=== PATIENT | female | born 1950 | race Caucasian/White ===

== ENCOUNTER 2024-01-24 09:24 | Outpatient (CLI) | payer MEDICARE, SELFPAY ==
--- NOTE | ~2024-01-24 | MR_ITS ---
EXAMINATION: MR hip LT wo con DATE: 01/24/2024 10:55 INDICATION: Left hip pain TECHNIQUE: Magnetic resonance imaging (MRI) of the left hip was performed without intravenous contra st. Sequences included full-field axial PD-weighted FS FSE and T1-weighted FSE, coronal of the pelvis with PD-weighted FS FSE, T2-weighted FSE and T1-weighted FSE, small field of view of the left hip w ith axial PD-weighted FS FSE, sagittal PD-weighted FS FSE, coronal PD-weighted FS FSE and coronal T2 weighted FSE. Additional radial T1-weighted FGR oriented orthogonal to the acetabular rim were obtai keira for evaluation of the labrum. COMPARISON: None FINDINGS: Bones/labrum/cartilage: Mild lumbar levocurvature with severe spondylosis.. There is severe osteoarthritis at the left hip wi th prominent subarticular edema-like and cystlike changes at both the acetabular and femoral sides of the superior joint space. There is suggestion of slight flattening of the articular cortex slightly posterior to the apex of the left femoral head suggesting secondary collapse of the articular cortex overlying the large subarticular cyst. No other fracture, osteonecrosis or pathologic marrow replacin g process. There is diffuse degenerative tearing of the left acetabular labrum. There is mild osteoar thritis at the right hip which is not diagnostically evaluated on the larger [id number] images. Fluid: Asymmetric likely reactive small left hip joint effusion and/or synovitis. Physiologic amount fluid a t the right hip joint. Mild increased fluid signal overlying the bilateral greater trochanters consis tent with mild trochanteric bursitis. There is also small amount of fluid overlying the right ischial tuberosity consistent with mild right ischial bursitis. Soft tissues: Normal and symmetric muscle bulk and signal in the pelvis and visualized proximal thighs. Mild tendin opathy and small enthesophytes at the ischial tuberosity origins of the bilateral proximal hamstring tendons. The bilateral iliopsoas tendons are normal. Mild tendinopathy without discrete tears at the bilateral gluteus medius and minimus tendons. Status post hysterectomy. Limited evaluation of viscera l organs of the pelvis is otherwise unremarkable. No pathologically enlarged pelvic/inguinal lymphad enopathy. IMPRESSION: 1. Severe left glenohumeral osteoarthritis with collapse of a portion of the articular surface slight ly posterior to the apex of the humeral head overlying a large degenerative subchondral cyst and with secondary likely reactive synovitis versus small joint effusion at the left hip. 2. Mild lumbar levocurvature with severe lower lumbar spondylosis. 3. Mild bilateral trochanteric bursitis. 4. Mild right ischial bursitis with chronic enthesopathic changes at the origins of the bilateral pro ximal hamstring tendons. Reviewed, dictated and finalized at location B. IMPRESSION: 1. Severe left glenohumeral osteoarthritis with collapse of a portion of the ar ticular surface slightly posterior to the apex of the humeral head overlying a large degenerative subchondral cyst and with secondary likely reactive synoviti s versus small joint effusion at the left hip. 2. Mild lumbar levocurvature with severe lower lumbar spondylosis. 3. Mild bilateral trochanteric bursitis. 4. Mild right ischial bursitis with chronic enthesopathic changes at the origin s of the bilateral proximal hamstring tendons.
== END 2024-01-24 09:25 | disposition home or self-care (01) ==
PROVIDERS: PCP Internal Medicine; Visit Provider Orthopaedic Surgery
DX: M70.62 Trochanteric bursitis, left hip (principal); M70.61 Trochanteric bursitis, right hip; M70.71 Other bursitis of hip, right hip; M19.012 Primary osteoarthritis, left shoulder; M43.8X6 Other specified deforming dorsopathies, lumbar region; M43.06 Spondylolysis, lumbar region
CPT/HCPCS: 73721

== ENCOUNTER 2024-03-25 16:16 | Outpatient (CLI) | payer MEDICARE, SELFPAY ==
--- NOTE | ~2024-03-25 | XR_ITS ---
HISTORY: M25.561 - Pain in right knee COMPARISON: None TECHNIQUE: 3 views of the right knee were performed FINDINGS: No acute or subacute fracture, erosion, lytic or sclerotic lesion. Medial more than lateral tibiofemoral joint space narrowing is identified. No suprapatellar joint effusion is identified. The infrapatellar joint space is clear. Significant degenerative disease is also identified within the patellofemoral joint space with near c omplete obliteration of the patellofemoral joint space. IMPRESSION: Severe degenerative disease, without acute fracture. Reviewed, dictated and finalized at location A. TIONAL TRAINER
== END 2024-03-25 16:17 | disposition home or self-care (01) ==
LOC: ANHIMG 16:17
PROVIDERS: PCP Internal Medicine; Visit Provider Orthopaedic Surgery
DX: M17.11 Unilateral primary osteoarthritis, right knee (principal)
CPT/HCPCS: 73562

== ENCOUNTER 2024-06-27 11:30 | Outpatient (CLI) | payer MEDICARE, SELFPAY ==
--- OUTSIDE RECORDS SUMMARY | 2024-06-27 11:41 | XMS_ITS | Continuity of Care Document ---
Author Organization [facility] Address [address] [place] [address] Phone Care Team Providers Care Produce Team Member Name Role Phone Kaleb Zavala DO Unavailable Unavailable Advance Directives Directive Yes / No Effective Date File Name No Information Encounters Encounter Description Practice Location Reason(s) For Visit Diagnoses Date Provider Providers Copied on Encounter [facility], [address], [place], [place], [id number], tel:[phone] [facility] No Information Lucas Muhammad. [address] [place], [address], . tel: [phone] Family History Family Member Type Diagnosis Age At Onset No Information Payers Payer name Insurance type Covered alliance party ID Authoriza tion(s) No Information Social [...]
--- OUTSIDE RECORDS SUMMARY | 2024-06-27 11:41 | XMS_ITS | Data Portability ---
Author Organization [place] [employer], Main Office Address [address] [place] [address] Assessment No assessment recorded. Plan of Treatment Reminders Order Date Submit Date Provider Last Modified By Organization Details Last Modified Time Details Appointments None recorded. Lab vitamin D, 25-hydrox y, total, serum 024 [facility], [address] , [place], [address], 4 15:42:37 lipid panel, serum [facility], [address], [place], [address], 4 15:42:30 CMP, serum or plasma [facility], [address], [place], [address], 4 15:42:32 TSH, serum or plasma [facility], [address], [place], [address], 4 15:42:36 T4, free, serum 024 [facility], [address], [place], [address], 4 15:42:35 CBC w/ auto diff [facility], [address] , [place], [address], 4 15:42:33 vitamin D, 25-hydrox y, total, serum 023 [facility], [address], [place], [address], 3 04:38:56 lipid panel, serum 023 [facility], [address], [place], [address], 3 04:38:50 CMP, serum or plasma [facility], [address], [place], [address], 3 04:38:52 TSH, serum or plasma [facility], [address], [place], [address], 3 04:38:55 T4, free, serum 023 [facility], [address], [place], [address], 3 04:38:54 CBC w/ auto diff [facility], [address], [place], [address], 3 04:38:53 Referral None recorded. Procedures None recorded. Surgeries None recorded. Imaging None recorded. Medication Orders None recorded. Patient TargetsNo targets recorded. Patient Instructions Encounter Date Encounter Id Patient Instructions Last Modified By Organization Details Last Modified Time 04/11/2023 [id number] dementia rating scale-2* [email or web address] Not available 04/11/2023 15:43:53 alcohol misuse* [email or web address] Not available 04/11/2023 15:43:54 depression screening* Not available 04/11/2023 15:43:54 multi-dimensiona l health assessment questionnaire* [email or web address] Not available 04/11/2023 15:43:54 Personalized a lt Plan and Screening Recommendations Advance Directives - Do you have one? Yes Advance Directives - Do we have your advance directive on file in your health record? No, please bring in a copy at your earliest convenience Primary Prevention/Interven tion (prevents or decreases the chance of common diseases from occurring) Smoking Risk: Non Smoker Alcohol Misuse Screening: Negative Weight: Physical activity: Need more exercise/physical activity Nutrition: Good Average Fall Risk (screened today): Low Vaccines Pneumococcal: Ordered Recommended today Recommended today, but you have declined No further needed Influenza: Your next one in the fall of this year Chronic Disease Risks Stroke: Low Risk Intermediate Risk I have no recommendations Act bill diagnosis, Continue current treatment plan Heart Attack: Low risk Intermediate Risk I have no recommendations Act bill diagnosis, Continue current treatment plan Clogging of the Arteries: Low risk Intermediate Risk I have no recommendations Act bill diagnosis, Continue current treatment plan Diabetes: Low Risk I have no recommendations Secondary Prevention/Interven tion (detects treatable diseases before they may cause symptoms, disability, or ) Breast Cancer Screening with mammogram: Your next mammogram: Ordered Recommended today Cervical/Uterine/Ov massiel Cancer Screening: No screening necessary Osteoporosis Screening: Your next DEXA in: Ordered Recomme nded today Date Screening Last Performed: Colon Cancer Screening: Colonoscopy Date Screening Last Performed: __2019___ Eye Disease Screening: Dementia Risk: Low I have no recommendations Depression Screening: Negative [email or web address] Not available 04/11/2023 15:40:22 Follow-up hyperlipidemia -history of colon polyps -sciatica all clinically stable. Will check blood work consisting of CBC, CMP, lipid, thyroid and vitamin-D level. Continue on current Rx does need a bone density scan as well as mammogram.FDA recommendations of a influenza, RSV, COVID, pneumococcal immunizations strongly advised. Portions of the record may have been created with voice recognition software. Occasional wrong-word or [id number] substitutions may have occurred due to the inherent limitations of voice recognition software. Read the chart carefully and recognize, using context, where substitutions have occurred. [email or web address] Not available 04/11/2023 15:34:15 10/10/2023 [id number] Left sacroiliac and hip pain. Will obtain radiographic studies of the hip in the lower back. Will set up with one of the orthopedist for further evaluation. Need to consider possibility of trochanteric bursitis as well as other bursitis type symptoms. May need an MRI of both the lower back as well as the hip area for further evaluation. Try to set up with doctors due for left hip pain LUIS A Patient has been quite a bit of pain and discomfort. X-ray of left hip and pelvis and lumbar spine Keep Appointment: Sun 09:30 AM [place] Portions of the record may have been created with voice recognition software. Occasional wrong-word or xhuld-w-[id number] substitutions may have occurred due to the inherent limitations of voice recognition software. Read the chart carefully and recognize, using context, where substitutions have occurred. [email or web address] Not available 10/10/2023 15:44:27 04/16/2024 [id number] dementia rating scale-2* [email or web address] Not available 04/16/2024 10:42:32 alcohol misuse* [email or web address] Not available 04/16/2024 10:42:32 depression screening* [email or web address] Not available 04/16/2024 10:42:32 Timed Up and Go test (TUG)* [email or web address] Not available 04/16/2024 10:42:32 multi-dimensiona l health assessment questionnaire* Not available 04/16/2024 10:42:32 Personalized a lth Plan and Screening Recommendations Advance Directives - Do you have one? Yes Advance Directives - Do we have your advance directive on file in your health record? No, please bring in a copy at your earliest convenience Primary Prevention/Interven tion (prevents or decreases the chance of common diseases from occurring) Smoking Risk: Non Smoker Alcohol Misuse Screening: Negative Weight: Appropriate Overwei ght continue your current weight loss efforts try to lose 5% of your body weight try to lose 10% of your body weight Physical activity: Need more exercise/physical activity Nutrition: Good Average Fall Risk (screened today): Low Vaccines Pneumococcal: Ordered Recommended today Recommended today, but you have declined No further needed Influenza: Chronic Disease Risks Stroke: Low Risk Intermediate Risk I have no recommendations Act bill diagnosis, Continue current treatment plan Heart Attack: Low risk Intermediate Risk I have no recommendations Act bill diagnosis, Continue current treatment plan Clogging of the Arteries: Low risk Intermediate Risk I have no recommendations Act bill diagnosis, Continue current treatment plan Diabetes: Low Risk I have no recommendations Secondary Prevention/Interven tion (detects treatable diseases before they may cause symptoms, disability, or ) Breast Cancer Screening with mammogram: Cervical/Uterine/Ov massiel Cancer Screening: No screening necessary Osteoporosis Screening: Date Screening Last Performed: Colon Cancer Screening: Colonoscopy In: Ordered Recomme nded Date Screening Last Performed: ____ Eye Disease Screening: Dementia Risk: Low I have no recommendations Depression Screening: Negative [email or web address] Not available 04/16/2024 10:33:16 [facility] risk assessment stable. Follow-up for hyperlipidemia. History of colon polyps, degenerative joint disease and obesity class one. He is clinically stable. Will give a Prevnar pneumonia shot. Does need blood work in the form of CBC, CMP, lipid, thyroid and vitamin-D level. Is in need of a colonoscopy as well as a mammogram. Will continue on current Rx follow-up in six months to a year Additional Orders - Directives - Recommendations 1. Mammogram 2. Follow-up colonoscopy for polyps Follow Up: 1 Year Approximate Date: 04/16/2025 Portions of the record may have been created with voice recognition software. Occasional wrong-word or heyza-x-[id number] substitutions may have occurred due to the inherent limitations of voice recognition software. Read the chart carefully and recognize, using context, where substitutions have occurred. Created: Frederic Reyes M.D. 04.16.2024 09:42 AM [email or web address] Not available 04/16/2024 10:42:12 Reason for Referral None Reported. Results Created Date Observation Date Name Description Value Unit Range Abnormal Flag Note LastModifiedBy Organization Detail LastModifiedTime 04/05/20 21 04/06/2021 VITAM IN D,25- OH,TO ASHLIE,I A vitamin D,25-oh,tota l,ia 38 NG/mL 30-100 normal Vitam in D Statu s 25-OH Vitam in D: Defic iency : <20 ng/mL Insuf ficie ncy: 20 - 29 ng/mL Optim al: > or = 30 ng/mL For 25-OH Vitam in D testi ng on patie nts on D2-nava pplem entat ion and patie nts for whom quant itati on of D2 and D3 fract ions is requi red, the [facility] e[facility](TM ) 25-OH VIT D, (D2,D 3), LC/MS /MS is recom shaneka d: order code 88936 (quynh ents >2yrs ). See Note 1 Note 1 For addit ional infor claribel ortiz refer to http: //mario Hernandezia gnost ics.c om/fa q/FAQ 199 (This link is being provi ded for infor man lua/ sylvester valverde purpo ses only. ) Not Available [address], [address], 04/06/2021 03:27:48 04/05/20 21 04/06/2021 CBC (INCL UDES DIFF/ PLT) white blood cell count 6.1 thous and/u L 3.8-10 .8 normal Not Available [address], [address], 04/06/2021 03:27:48 04/05/20 21 04/06/2021 CBC (INCL UDES DIFF/ PLT) red blood cell count 4.20 ariela on/uL 3.80-5 .10 normal Not Available [address], [address], 04/06/2021 03:27:48 04/05/20 21 04/06/2021 CBC (INCL UDES DIFF/ PLT) hemoglobin 13.9 g/dL 11.7-1 5.5 normal Not Available [address], [address], 04/06/2021 03:27:48 04/05/20 21 04/06/2021 CBC (INCL UDES DIFF/ PLT) hematocrit 42.0 % 35.0-4 5.0 normal Not Available [address], [address], 04/06/2021 03:27:48 04/05/20 21 04/06/2021 CBC (INCL UDES DIFF/ PLT) MCV 100.0 fL 80.0-1 00.0 normal Not Available [address], [address], 04/06/2021 03:27:48 04/05/20 21 04/06/2021 CBC (INCL UDES DIFF/ PLT) MCH 33.1 pg 27.0-3 3.0 high Not Available [address], [address], 04/06/2021 03:27:48 04/05/20 21 04/06/2021 CBC (INCL UDES DIFF/ PLT) MCHC 33.1 g/dL 32.0-3 6.0 normal Not Available [address], [address], 04/06/2021 03:27:48 04/05/20 21 04/06/2021 CBC (INCL UDES DIFF/ PLT) RDW 12.3 % 11.0-1 5.0 normal Not Available [address], [address], 04/06/2021 03:27:48 04/05/20 21 04/06/2021 CBC (INCL UDES DIFF/ PLT) platelet count 278 thous and/u L 140-40 0 normal Not Available [address], [address], 04/06/2021 03:27:48 04/05/20 21 04/06/2021 CBC (INCL UDES DIFF/ PLT) MPV 10.7 fL 7.5-12 .5 normal Not Available [address], [address], 04/06/2021 03:27:48 04/05/20 21 04/06/2021 CBC (INCL UDES DIFF/ PLT) absolute neutrophils 4057 cells /uL 1500-7 800 normal Not Available [address], [address], 04/06/2021 03:27:48 04/05/20 21 04/06/2021 CBC (INCL UDES DIFF/ PLT) absolute lymphocytes 1312 cells /uL 850-39 00 normal Not Available [address], [address], 04/06/2021 03:27:48 04/05/20 21 04/06/2021 CBC (INCL UDES DIFF/ PLT) absolute monocytes 378 cells /uL 200-95 0 normal Not Available [address] [place], [address], 04/06/2021 03:27:48 04/05/20 21 04/06/2021 CBC (INCL UDES DIFF/ PLT) absolute eosinophils 287 cells /uL 15-500 normal Not Available [address], [address], 04/06/2021 03:27:48 04/05/20 21 04/06/2021 CBC (INCL UDES DIFF/ PLT) absolute basophils 67 cells /uL 0-200 normal Not Available [address], [address], 04/06/2021 03:27:48 04/05/20 21 04/06/2021 CBC (INCL UDES DIFF/ PLT) neutrophils 66.5 % normal Not Available [address], [address], 04/06/2021 03:27:48 04/05/20 21 04/06/2021 CBC (INCL UDES DIFF/ PLT) lymphocytes 21.5 % normal Not Available [address], [address], 04/06/2021 03:27:48 04/05/20 21 04/06/2021 CBC (INCL UDES DIFF/ PLT) monocytes 6.2 % normal Not Available [address], [address], 04/06/2021 03:27:48 04/05/20 21 04/06/2021 CBC (INCL UDES DIFF/ PLT) eosinophils 4.7 % normal Not Available [address], [address], 04/06/2021 03:27:48 04/05/20 21 04/06/2021 CBC (INCL UDES DIFF/ PLT) basophils 1.1 % normal Not Available [address], [address], 04/06/2021 03:27:48 04/05/20 21 04/06/2021 COMPR EHENS BILL METAB OLIC PANEL , PLASM A glucose 96 mg/dL 65-99 normal Fasti ng refer ence inter martina Not Available [address], [address], 04/06/2021 03:27:47 04/05/20 21 04/06/2021 COMPR EHENS BILL METAB OLIC PANEL , PLASM A urea nitrogen (BUN) 11 mg/dL 7-25 normal Not Available [address], [address], 04/06/2021 03:27:47 04/05/20 21 04/06/2021 COMPR EHENS BILL METAB OLIC PANEL , PLASM A creatinine 0.87 mg/dL 0.50-0 .99 normal For patie nts >49 years of age, the refer ence limit for Creat inine is appro ximat anita 13% highe r for peopl e ident ified as Afric an-Am haroon n. Not Available [address], [address], 04/06/2021 03:27:47 04/05/20 21 04/06/2021 COMPR EHENS BILL METAB OLIC PANEL , PLASM A eGFR non-afr. hungarian 68 mL/mi n/1.7 3m2 > or = 60 normal Not Available [facility] [address], [place], [address], 04/06/2021 03:27:47 04/05/20 21 04/06/2021 COMPR EHENS BILL METAB OLIC PANEL , PLASM A eGFR 79 mL/mi n/1.7 3m2 > or = 60 normal Not Available [address], [address], 04/06/2021 03:27:47 04/05/20 21 04/06/2021 COMPR EHENS BILL METAB OLIC PANEL , PLASM A BUN/creatini ne ratio not applic able (calc ) 6-22 Not Available [address], [address], 04/06/2021 03:27:47 04/05/20 21 04/06/2021 COMPR EHENS BILL METAB OLIC PANEL , PLASM A sodium 141 mmol/ L 135-14 6 normal Not Available [address], [address], 04/06/2021 03:27:47 04/05/20 21 04/06/2021 COMPR EHENS BILL METAB OLIC PANEL , PLASM A potassium 3.9 mmol/ L 3.4-4. 8 normal Not Available [address], [address], 04/06/2021 03:27:47 04/05/20 21 04/06/2021 COMPR EHENS BILL METAB OLIC PANEL , PLASM A chloride 102 mmol/ L 98-110 normal Not Available [address], [address], 04/06/2021 03:27:47 04/05/20 21 04/06/2021 COMPR EHENS BILL METAB OLIC PANEL , PLASM A carbon dioxide 29 mmol/ L 20-32 normal Not Available [address], [address], 04/06/2021 03:27:47 04/05/20 21 04/06/2021 COMPR EHENS BILL METAB OLIC PANEL , PLASM A calcium 9.4 mg/dL 8.6-10 .4 normal Not Available [address], [address], 04/06/2021 03:27:47 04/05/20 21 04/06/2021 COMPR EHENS BILL METAB OLIC PANEL , PLASM A protein, total 6.6 g/dL 6.4-8. 4 normal Not Available [address], [address], 04/06/2021 03:27:47 04/05/20 21 04/06/2021 COMPR EHENS BILL METAB OLIC PANEL , PLASM A albumin 4.2 g/dL 3.6-5. 1 normal Not Available [address], [address], 04/06/2021 03:27:47 04/05/20 21 04/06/2021 COMPR EHENS BILL METAB OLIC PANEL , PLASM A globulin 2.4 g/dL_ (calc ) 2.2-4. 0 normal Not Available [address], [address], 04/06/2021 03:27:47 04/05/20 21 04/06/2021 COMPR EHENS BILL METAB OLIC PANEL , PLASM A albumin/glob ulin ratio 1.8 (calc ) 0.9-2. 3 normal Not Available [address], [address], 04/06/2021 03:27:47 04/05/20 21 04/06/2021 COMPR EHENS BILL METAB OLIC PANEL , PLASM A bilirubin, total 0.6 mg/dL 0.2-1. 2 normal Not Available [address], [address], 04/06/2021 03:27:47 04/05/20 21 04/06/2021 COMPR EHENS BILL METAB OLIC PANEL , PLASM A alkaline phosphatase 64 U/L 37-153 normal Not Available [address], [address], 04/06/2021 03:27:47 04/05/20 21 04/06/2021 COMPR EHENS BILL METAB OLIC PANEL , PLASM A AST 19 U/L 10-35 normal Not Available [address], [address], 04/06/2021 03:27:47 04/05/20 21 04/06/2021 COMPR EHENS BILL METAB OLIC PANEL , PLASM A ALT 16 U/L 6-29 normal Not Available [address], [address], 04/06/2021 03:27:47 04/05/20 21 04/06/2021 TSH+F REE T4 TSH 4.59 mIU/L 0.40-4 .50 high Not Available [address], [address], 04/06/2021 03:27:47 04/05/20 21 04/06/2021 TSH+F REE T4 T4, free 1.1 NG/dL 0.8-1. 8 normal Not Available [address], [address], 04/06/2021 03:27:47 04/05/20 21 04/06/2021 LIPID PANEL , STAND SHOSHANA cholesterol, total 186 mg/dL <200 normal Not Available [address], [address], 04/06/2021 03:27:45 04/05/20 21 04/06/2021 LIPID PANEL , STAND SHOSHANA HDL cholesterol 72 mg/dL > or = 50 normal Not Available [address] [place], [address], 04/06/2021 03:27:45 04/05/20 21 04/06/2021 LIPID PANEL , STAND SHOSHANA triglyceride s 92 mg/dL <150 normal Not Available [address] [address] [place], [address], 04/06/2021 03:27:45 04/05/20 21 04/06/2021 LIPID PANEL , STAND SHOSHANA LDL-choleste rol 95 mg/dL _(leodan c) normal Refer ence range : <100 Edu able range <100 mg/dL for prima ry preve ntion ; <70 mg/dL for patie nts with CHD or diabe tic patie nts with > or = 2 CHD risk facto rs. LDL-C is now calcu lated using the Shy n-Hop kins calcu ludy n, which is a valid ated novel lizyo d lorenzoi bridger kenyonte r accur acy than the Fried fawn equat ion in the estim ation of LDL-C . Shy mcconnell SS et al. SLAVA. 2013; 310(1 9): 2061- 2068 (http ://ed ucati on.Qu Bhavik [employer]. com/f aq/FA Q164) Not Available [address] [address] [address] , [place], [address], 04/06/2021 03:27:45 04/05/20 21 04/06/2021 LIPID PANEL , STAND SHOSHANA chol/HDLC ratio 2.6 (calc ) <5.0 normal Not Available [address] [address] [place], [address], 04/06/2021 03:27:45 04/05/2004/06/2021 LIPID PANEL , STAND SHOSHANA non HDL cholesterol 114 mg/dL _(leodan c) <130 normal For patie nts with diabe kushal plus 1 major ASCVD risk facto r, treat ing to a non-H DL-C goal of <100 mg/dL (LDL- C of <70 mg/dL ) is consi dered a thera peuti c optio n. Not Available [facility] [address] [address] [place], [address], 04/06/2021 03:27:45 04/08/20 22 04/09/2022 VITAM IN D,25- OH,TO ASHLIE,I A vitamin D,25-oh,tota l,ia 45 NG/mL 30-100 normal Vitam in D Statu s 25-OH Vitam in D: Defic iency : <20 ng/mL Insuf ficie ncy: 20 - 29 ng/mL Optim al: > or = 30 ng/mL For 25-OH Vitam in D testi ng on patie nts on D2-nava pplem entat ion and patie nts for whom quant itati on of D2 and D3 fract ions is requi red, the [facility] eD(TM ) 25-OH VIT D, (D2,D 3), LC/MS /MS is recom shaneka d: order code 90130 (quynh ents >2yrs ). See Note 1 Note 1 For addit ional infor claribel ortiz e refer to http: //[facility] Monta[facility] stDia gnost ics.c om/fa q/FAQ 199 (This link is being provi ded for infor man lua/ sylvester valverde purpo ses only. ) Not Available [facility] [address] [address] [place], [address], 04/09/2022 07:20:33 04/08/20 22 04/09/2022 TSH TSH 4.37 mIU/L 0.40-4 .50 normal Not Available [facility] [address] [address] [place], [address], 04/09/2022 07:20:32 04/08/20 22 04/09/2022 T4, FREE T4, free 1.1 NG/dL 0.8-1. 8 normal Not Available [facility] [address] [address] [place], [address], 04/09/2022 07:20:31 04/08/20 22 04/09/2022 CBC (INCL UDES DIFF/ PLT) white blood cell count 5.7 thous and/u L 3.8-10 .8 normal Not Available [address], [address], 04/09/2022 07:20:30 04/08/20 22 04/09/2022 CBC (INCL UDES DIFF/ PLT) red blood cell count 4.44 ariela on/uL 3.80-5 .10 normal Not Available [address], [address], 04/09/2022 07:20:30 04/08/20 22 04/09/2022 CBC (INCL UDES DIFF/ PLT) hemoglobin 14.2 g/dL 11.7-1 5.5 normal Not Available [address], [address], 04/09/2022 07:20:30 04/08/20 22 04/09/2022 CBC (INCL UDES DIFF/ PLT) hematocrit 44.1 % 35.0-4 5.0 normal Not Available [address], [address], 04/09/2022 07:20:30 04/08/20 22 04/09/2022 CBC (INCL UDES DIFF/ PLT) MCV 99.3 fL 80.0-1 00.0 normal Not Available [address], [address], 04/09/2022 07:20:30 04/08/20 22 04/09/2022 CBC (INCL UDES DIFF/ PLT) MCH 32.0 pg 27.0-3 3.0 normal Not Available [address], [address], 04/09/2022 07:20:30 04/08/20 22 04/09/2022 CBC (INCL UDES DIFF/ PLT) MCHC 32.2 g/dL 32.0-3 6.0 normal Not Available [address], [address], 04/09/2022 07:20:30 04/08/20 22 04/09/2022 CBC (INCL UDES DIFF/ PLT) RDW 11.9 % 11.0-1 5.0 normal Not Available [address], [address], 04/09/2022 07:20:30 04/08/20 22 04/09/2022 CBC (INCL UDES DIFF/ PLT) platelet count 256 thous and/u L 140-40 0 normal Not Available [address], [address], 04/09/2022 07:20:30 04/08/20 22 04/09/2022 CBC (INCL UDES DIFF/ PLT) MPV 10.4 fL 7.5-12 .5 normal Not Available [address], [address], 04/09/2022 07:20:30 04/08/20 22 04/09/2022 CBC (INCL UDES DIFF/ PLT) absolute neutrophils 3620 cells /uL 1500-7 800 normal Not Available [address], [address], 04/09/2022 07:20:30 04/08/20 22 04/09/2022 CBC (INCL UDES DIFF/ PLT) absolute lymphocytes 1402 cells /uL 850-39 00 normal Not Available [address], [address], 04/09/2022 07:20:30 04/08/20 22 04/09/2022 CBC (INCL UDES DIFF/ PLT) absolute monocytes 365 cells /uL 200-95 0 normal Not Available [address], [address], 04/09/2022 07:20:30 04/08/20 22 04/09/2022 CBC (INCL UDES DIFF/ PLT) absolute eosinophils 257 cells /uL 15-500 normal Not Available [address], [address], 04/09/2022 07:20:30 04/08/20 22 04/09/2022 CBC (INCL UDES DIFF/ PLT) absolute basophils 57 cells /uL 0-200 normal Not Available [address], [address], 04/09/2022 07:20:30 04/08/20 22 04/09/2022 CBC (INCL UDES DIFF/ PLT) neutrophils 63.5 % normal Not Available [address], [address], 04/09/2022 07:20:30 04/08/20 22 04/09/2022 CBC (INCL UDES DIFF/ PLT) lymphocytes 24.6 % normal Not Available [address], [address], 04/09/2022 07:20:30 04/08/20 22 04/09/2022 CBC (INCL UDES DIFF/ PLT) monocytes 6.4 % normal Not Available [address], [address], 04/09/2022 07:20:30 04/08/20 22 04/09/2022 CBC (INCL UDES DIFF/ PLT) eosinophils 4.5 % normal Not Available [address], [address], 04/09/2022 07:20:30 04/08/20 22 04/09/2022 CBC (INCL UDES DIFF/ PLT) basophils 1.0 % normal Not Available [address], [address], 04/09/2022 07:20:30 04/08/20 22 04/09/2022 COMPR EHENS BILL METAB OLIC PANEL , PLASM A glucose 102 mg/dL 65-99 high Fasti ng refer ence inter martina For someo ne witho ut known diabe kushal, a gluco se value betwe en 100 and 125 mg/dL is consi stent with predi abete s and shoul d be confi rmed with a follo w-up test. Not Available [address], [address], 04/09/2022 07:20:30 04/08/20 22 04/09/2022 COMPR EHENS BILL METAB OLIC PANEL , PLASM A urea nitrogen (BUN) 12 mg/dL 7-25 normal Not Available [address], [address], 04/09/2022 07:20:30 04/08/20 22 04/09/2022 COMPR EHENS BILL METAB OLIC PANEL , PLASM A creatinine 0.81 mg/dL 0.50-1 .05 normal Not Available [address], [address], 04/09/2022 07:20:30 04/08/20 22 04/09/2022 COMPR EHENS BILL METAB OLIC PANEL , PLASM A eGFR 79 mL/mi n/1.7 3m2 > or = 60 normal The eGFR is based on the CKD-E PI 2020 equat ion. To calcu late the new eGFR from a previ ous Creat inine or Cysta tin C resul t, go to https ://kt michaud.byron mayorga.o max/tasia arredondo s/ kdoqi /gfr% 5Fcal culat or Not Available [address], [address], 04/09/2022 07:20:30 04/08/20 22 04/09/2022 COMPR EHENS BILL METAB OLIC PANEL , PLASM A BUN/creatini ne ratio not applic able (calc ) 6-22 Not Available [address], [address], 04/09/2022 07:20:30 04/08/20 22 04/09/2022 COMPR EHENS BILL METAB OLIC PANEL , PLASM A sodium 139 mmol/ L 135-14 6 normal Not Available [address], [address], 04/09/2022 07:20:30 04/08/20 22 04/09/2022 COMPR EHENS BILL METAB OLIC PANEL , PLASM A potassium 4.4 mmol/ L 3.4-4. 8 normal Not Available [address], [address], 04/09/2022 07:20:30 04/08/20 22 04/09/2022 COMPR EHENS BILL METAB OLIC PANEL , PLASM A chloride 102 mmol/ L 98-110 normal Not Available [address], [address], 04/09/2022 07:20:30 04/08/20 22 04/09/2022 COMPR EHENS BILL METAB OLIC PANEL , PLASM A carbon dioxide 26 mmol/ L 20-32 normal Not Available [address], [address], 04/09/2022 07:20:30 04/08/20 22 04/09/2022 COMPR EHENS BILL METAB OLIC PANEL , PLASM A calcium 9.4 mg/dL 8.6-10 .4 normal Not Available [address], [address], 04/09/2022 07:20:30 04/08/20 22 04/09/2022 COMPR EHENS BILL METAB OLIC PANEL , PLASM A protein, total 6.9 g/dL 6.4-8. 4 normal Not Available [address], [address], 04/09/2022 07:20:30 04/08/20 22 04/09/2022 COMPR EHENS BILL METAB OLIC PANEL , PLASM A albumin 4.3 g/dL 3.6-5. 1 normal Not Available [address], [address], 04/09/2022 07:20:30 04/08/20 22 04/09/2022 COMPR EHENS BILL METAB OLIC PANEL , PLASM A globulin 2.6 g/dL_ (calc ) 2.2-4. 0 normal Not Available [address], [address], 04/09/2022 07:20:30 04/08/20 22 04/09/2022 COMPR EHENS BILL METAB OLIC PANEL , PLASM A albumin/glob ulin ratio 1.7 (calc ) 0.9-2. 3 normal Not Available [address], [address], 04/09/2022 07:20:30 04/08/20 22 04/09/2022 COMPR EHENS BILL METAB OLIC PANEL , PLASM A bilirubin, total 0.6 mg/dL 0.2-1. 2 normal Not Available [address], [address], 04/09/2022 07:20:30 04/08/20 22 04/09/2022 COMPR EHENS BILL METAB OLIC PANEL , PLASM A alkaline phosphatase 71 U/L 37-153 normal Not Available [address], [address], 04/09/2022 07:20:30 04/08/20 22 04/09/2022 COMPR EHENS BILL METAB OLIC PANEL , PLASM A AST 14 U/L 10-35 normal Not Available [address], [address], 04/09/2022 07:20:30 04/08/20 22 04/09/2022 COMPR EHENS BILL METAB OLIC PANEL , PLASM A ALT 11 U/L 6-29 normal Not Available [address], [address], 04/09/2022 07:20:30 04/08/20 22 04/09/2022 LIPID PANEL , STAND SHOSHANA cholesterol, total 188 mg/dL <200 normal Not Available [address], [address], 04/09/2022 07:20:29 04/08/20 22 04/09/2022 LIPID PANEL , STAND SHOSHANA HDL cholesterol 68 mg/dL > or = 50 normal Not Available [address], [address], 04/09/2022 07:20:29 04/08/20 22 04/09/2022 LIPID PANEL , STAND SHOSHANA triglyceride s 86 mg/dL <150 normal Not Available [address], [address], 04/09/2022 07:20:29 04/08/20 22 04/09/2022 LIPID PANEL , STAND SHOSHANA LDL-choleste rol 102 mg/dL _(leodan c) high Refer ence range : <100 Edu able range <100 mg/dL for prima ry preve ntion ; <70 mg/dL for patie nts with CHD or diabe tic patie nts with > or = 2 CHD risk facto rs. LDL-C is now calcu lated using the Shy n-[employer] kins calcu latkevin n, which is a valid ated novel metho d adali triplett acy than the Fried fawn equat ion in the estim ation of LDL-C . Shy mcconnell SS et al. SLAVA. 2013; 310(1 9): 2061- 2068 (http ://ed ucati on.Qu estDi paulyos tics. com/f aq/FA Q164) Not Available [address], [address], 04/09/2022 07:20:29 04/08/20 22 04/09/2022 LIPID PANEL , STAND SHOSHANA chol/HDLC ratio 2.8 (calc ) <5.0 normal Not Available [address] [address] [place], [address], 04/09/2022 07:20:29 04/08/20 22 04/09/2022 LIPID PANEL , STAND SHOSHANA non HDL cholesterol 120 mg/dL _(leodan c) <130 normal For patie nts with diabe kushal plus 1 major ASCVD risk facto r, treat ing to a non-H DL-C goal of <100 mg/dL (LDL- C of <70 mg/dL ) is sun corleyo n. Not Available [address] [address] [place], [address], 04/09/2022 07:20:29 04/20/20 23 04/21/2023 LIPID PANEL , STAND SHOSHANA cholesterol, total 147 mg/dL <200 normal Not Available [address] [place], [address], 04/21/2023 04:38:50 04/20/20 23 04/21/2023 LIPID PANEL , STAND SHOSHANA HDL cholesterol 51 mg/dL > or = 50 normal Not Available [address] [address] [place], [address], 04/21/2023 04:38:50 04/20/20 23 04/21/2023 LIPID PANEL , STAND SHOSHANA triglyceride s 109 mg/dL <150 normal Not Available [address] [address] [place], [address], 04/21/2023 04:38:50 04/20/20 23 04/21/2023 LIPID PANEL , STAND SHOSHANA LDL-choleste rol 77 mg/dL _(leodan c) normal Refer ence range : <100 Edu able range <100 mg/dL for prima ry preve ntion ; <70 mg/dL for patie nts with CHD or diabe tic patie nts with > or = 2 CHD risk facto rs. LDL-C is now calcu lated using the [facility]y n-[facility] kins layne boston n, which is a valid ated novel metho d provi bridger claudia r accur acy than the Fried fawn equat ion in the estim ation of LDL-C . Shy mcconnell SS et al. SLAVA. 2013; 310(1 9): 2061- 206 (http ://ed ucati on.Qu estDi Simple[employer]. com/f aq/FA Q164) Not Available [facility] [address] [address] [place], [address], 04/21/2023 04:38:50 04/20/20 23 04/21/2023 LIPID PANEL , STAND SHOSHANA chol/HDLC ratio 2.9 (calc ) <5.0 normal Not Available [facility] [address], [address], 04/21/2023 04:38:50 04/20/20 23 04/21/2023 LIPID PANEL , STAND SHOSHANA non HDL cholesterol 96 mg/dL _(leodan c) <130 normal For patie nts with diabe kushal plus 1 major ASCVD risk facto r, treat ing to a non-H DL-C goal of <100 mg/dL (LDL- C of <70 mg/dL ) is consi dered a thera peuti c optio n. Not Available [facility] [address] [place], [address], 04/21/2023 04:38:50 04/20/20 23 04/21/2023 COMPR EHENS BILL METAB OLIC PANEL , PLASM A glucose 105 mg/dL 65-99 high Fasti ng refer ence inter martina For someo ne witho ut known diabe kushal, a gluco se value betwe en 100 and 125 mg/dL is consi stent with predi abete s and shoul d be confi rmed with a follo w-up test. Not Available [facility] [place], [address], 04/21/2023 04:38:52 04/20/20 23 04/21/2023 COMPR EHENS BILL METAB OLIC PANEL , PLASM A urea nitrogen (BUN) 10 mg/dL 7-25 normal Not Available [address], [address], 04/21/2023 04:38:52 04/20/20 23 04/21/2023 COMPR EHENS BILL METAB OLIC PANEL , PLASM A creatinine 0.75 mg/dL 0.60-1 .00 normal Not Available [facility] [email or web address] Diagnostics [address], [address], 04/21/2023 04:38:52 04/20/20 23 04/21/2023 COMPR EHENS BILL METAB OLIC PANEL , PLASM A eGFR 86 mL/mi n/1.7 3m2 > or = 60 normal Not Available [address], [address], 04/21/2023 04:38:52 04/20/2004/21/2023 COMPR EHENS BILL METAB OLIC PANEL , PLASM A BUN/creatini ne ratio SEE NOTE: (calc ) 6-22 Not Repor rudy: BUN and Creat inine are withi n refer ence range . Not Available [address], [address], 04/21/2023 04:38:52 04/20/20 23 04/21/2023 COMPR EHENS BILL METAB OLIC PANEL , PLASM A sodium 141 mmol/ L 135-14 6 normal Not Available [address], [address], 04/21/2023 04:38:52 04/20/20 23 04/21/2023 COMPR EHENS BILL METAB OLIC PANEL , PLASM A potassium 3.6 mmol/ L 3.4-4. 8 normal Not Available [facility] [address] [place], [address], 04/21/2023 04:38:52 04/20/20 23 04/21/2023 COMPR EHENS BILL METAB OLIC PANEL , PLASM A chloride 104 mmol/ L 98-110 normal Not Available [address], [address], 04/21/2023 04:38:52 04/20/20 23 04/21/2023 COMPR EHENS BILL METAB OLIC PANEL , PLASM A carbon dioxide 27 mmol/ L 20-32 normal Not Available [address], [address], 04/21/2023 04:38:52 04/20/20 23 04/21/2023 COMPR EHENS BILL METAB OLIC PANEL , PLASM A calcium 9.2 mg/dL 8.6-10 .4 normal Not Available [address], [address], 04/21/2023 04:38:52 04/20/20 23 04/21/2023 COMPR EHENS BILL METAB OLIC PANEL , PLASM A protein, total 6.4 g/dL 6.4-8. 4 normal Not Available [address], [address], 04/21/2023 04:38:52 04/20/20 23 04/21/2023 COMPR EHENS BILL METAB OLIC PANEL , PLASM A albumin 4.0 g/dL 3.6-5. 1 normal Not Available [facility] [address], [address], 04/21/2023 04:38:52 04/20/20 23 04/21/2023 COMPR EHENS BILL METAB OLIC PANEL , PLASM A globulin 2.4 g/dL_ (calc ) 2.2-4. 0 normal Not Available [facility] [address], [address], 04/21/2023 04:38:52 04/20/20 23 04/21/2023 COMPR EHENS BILL METAB OLIC PANEL , PLASM A albumin/glob ulin ratio 1.7 (calc ) 0.9-2. 3 normal Not Available [address], [address], 04/21/2023 04:38:52 04/20/20 23 04/21/2023 COMPR EHENS BILL METAB OLIC PANEL , PLASM A bilirubin, total 0.5 mg/dL 0.2-1. 2 normal Not Available [address], [address], 04/21/2023 04:38:52 04/20/20 23 04/21/2023 COMPR EHENS BILL METAB OLIC PANEL , PLASM A alkaline phosphatase 84 U/L 37-153 normal Not Available [address], [address], 04/21/2023 04:38:52 04/20/20 23 04/21/2023 COMPR EHENS BILL METAB OLIC PANEL , PLASM A AST 14 U/L 10-35 normal Not Available [address], [address], 04/21/2023 04:38:52 04/20/20 23 04/21/2023 COMPR EHENS BILL METAB OLIC PANEL , PLASM A ALT 10 U/L 6-29 normal Not Available [address], [address], 04/21/2023 04:38:52 04/20/20 23 04/21/2023 CBC (INCL UDES DIFF/ PLT) white blood cell count 6.3 thous and/u L 3.8-10 .8 normal Not Available [address], [address], 04/21/2023 04:38:53 04/20/20 23 04/21/2023 CBC (INCL UDES DIFF/ PLT) red blood cell count 4.06 ariela on/uL 3.80-5 .10 normal Not Available [address], [address], 04/21/2023 04:38:53 04/20/20 23 04/21/2023 CBC (INCL UDES DIFF/ PLT) hemoglobin 13.6 g/dL 11.7-1 5.5 normal Not Available [address], [address], 04/21/2023 04:38:53 04/20/20 23 04/21/2023 CBC (INCL UDES DIFF/ PLT) hematocrit 40.4 % 35.0-4 5.0 normal Not Available [address], [address], 04/21/2023 04:38:53 04/20/20 23 04/21/2023 CBC (INCL UDES DIFF/ PLT) MCV 99.5 fL 80.0-1 00.0 normal Not Available [address], [address], 04/21/2023 04:38:53 04/20/20 23 04/21/2023 CBC (INCL UDES DIFF/ PLT) MCH 33.5 pg 27.0-3 3.0 high Not Available [address], [address], 04/21/2023 04:38:53 04/20/20 23 04/21/2023 CBC (INCL UDES DIFF/ PLT) MCHC 33.7 g/dL 32.0-3 6.0 normal Not Available [address], [address], 04/21/2023 04:38:53 04/20/20 23 04/21/2023 CBC (INCL UDES DIFF/ PLT) RDW 12.3 % 11.0-1 5.0 normal Not Available [address], [address], 04/21/2023 04:38:53 04/20/20 23 04/21/2023 CBC (INCL UDES DIFF/ PLT) platelet count 281 thous and/u L 140-40 0 normal Not Available [address], [address], 04/21/2023 04:38:53 04/20/20 23 04/21/2023 CBC (INCL UDES DIFF/ PLT) MPV 10.4 fL 7.5-12 .5 normal Not Available [address], [address], 04/21/2023 04:38:53 04/20/20 23 04/21/2023 CBC (INCL UDES DIFF/ PLT) absolute neutrophils 4397 cells /uL 1500-7 800 normal Not Available [address], [address], 04/21/2023 04:38:53 04/20/20 23 04/21/2023 CBC (INCL UDES DIFF/ PLT) absolute lymphocytes 1298 cells /uL 850-39 00 normal Not Available [address], [address], 04/21/2023 04:38:53 04/20/20 23 04/21/2023 CBC (INCL UDES DIFF/ PLT) absolute monocytes 353 cells /uL 200-95 0 normal Not Available [address], [address], 04/21/2023 04:38:53 04/20/2004/21/2023 CBC (INCL UDES DIFF/ PLT) absolute eosinophils 202 cells /uL 15-500 normal Not Available [address], [address], 04/21/2023 04:38:53 12/08/04/21/2023 CBC (INCL UDES DIFF/ PLT) absolute basophils 50 cells /uL 0-200 normal Not Available [address], [address], 04/21/2023 04:38:53 04/20/2004/21/2023 CBC (INCL UDES DIFF/ PLT) neutrophils 69.8 % normal Not Available [address], [address], 04/21/2023 04:38:53 04/20/2004/21/2023 CBC (INCL UDES DIFF/ PLT) lymphocytes 20.6 % normal Not Available [address], [address], 04/21/2023 04:38:53 04/20/20 23 04/21/2023 CBC (INCL UDES DIFF/ PLT) monocytes 5.6 % normal Not Available [address], [address], 04/21/2023 04:38:53 04/20/20 23 04/21/2023 CBC (INCL UDES DIFF/ PLT) eosinophils 3.2 % normal Not Available [address], [address], 04/21/2023 04:38:53 04/20/2004/21/2023 CBC (INCL UDES DIFF/ PLT) basophils 0.8 % normal Not Available [address], [address], 04/21/2023 04:38:53 04/20/20 23 04/21/2023 T4, FREE T4, free 1.2 NG/dL 0.8-1. 8 normal Not Available [address], [address], 04/21/2023 04:38:54 04/20/20 23 04/21/2023 TSH TSH 2.89 mIU/L 0.40-4 .50 normal Not Available [facility] [address] [address] [place], [address], 04/21/2023 04:38:55 04/20/20 23 04/21/2023 VITAM IN D,25- OH,TO ASHLIE,I A vitamin D,25-oh,tota l,ia 32 NG/mL 30-100 normal Vitam in D Statu s 25-OH Vitam in D: Defic iency : <20 ng/mL Insuf ficie ncy: 20 - 29 ng/mL Optim al: > or = 30 ng/mL For 25-OH Vitam in D testi ng on patie nts on D2-nava pplem entat ion and patie nts for whom quant itati on of D2 and D3 fract ions is requi red, the [facility] e[facility](TM ) 25-OH VIT D, (D2,D 3), LC/MS /MS is recom shaneka d: order code 98964 (quynh ents >2yrs ). See Note 1 Note 1 For addit ional infor claribel ortiz refer to http: //[facility] Hernandezia gnost ics.c om/fa q/FAQ 199 (This link is being provi ded for infor man lua/ sylvester valverde purpo ses only. ) Not Available [facility] [address] [address] [place], [address], 04/21/2023 04:38:56 04/17/20 24 04/18/2024 LIPID PANEL , STAND SHOSHANA cholesterol, total 169 mg/dL <200 normal Not Available [facility] [address] [address] [place], [address], 04/18/2024 15:42:30 04/17/20 24 04/18/2024 LIPID PANEL , STAND SHOSHANA HDL cholesterol 59 mg/dL > or = 50 normal Not Available [facility] [address] [address] [place], [address], 04/18/2024 15:42:30 04/17/20 24 04/18/2024 LIPID PANEL , STAND SHOSHANA triglyceride s 90 mg/dL <150 normal Not Available [facility] [address] [place], [address], 04/18/2024 15:42:30 04/17/20 24 04/18/2024 LIPID PANEL , STAND SHOSHANA LDL-choleste rol 92 mg/dL _(leodan c) normal Refer ence range : <100 Edu able range <100 mg/dL for prima ry preve ntion ; <70 mg/dL for patie nts with CHD or diabe tic patie nts with > or = 2 CHD risk facto rs. LDL-C is now calcu lated using the Shy n-[employer] kins calcu ludy n, which is a valid ated novel metho d provi ding claudia r accur acy than the Fried fawn equat ion in the estim ation of LDL-C . Shy mcconnell SS et al. SLAVA. 2013; 310(1 9): 2061- 2068 (http ://ed ucati on.Qu katarinaBlue Medora. com/f aq/FA Q164) Not Available [facility] [address] [place], [address], 04/18/2024 15:42:30 04/17/20 24 04/18/2024 LIPID PANEL , STAND SHOSHANA chol/HDLC ratio 2.9 (calc ) <5.0 normal Not Available [facility] [address] [place], [address], 04/18/2024 15:42:30 04/17/20 24 04/18/2024 LIPID PANEL , STAND SHOSHANA non HDL cholesterol 110 mg/dL _(leodan c) <130 normal For patie nts with diabe kushal plus 1 major ASCVD risk facto r, treat ing to a non-H DL-C goal of <100 mg/dL (LDL- C of <70 mg/dL ) is consi dered a thera peuti c optio n. Not Available [facility] [address] [place], [address], 04/18/2024 15:42:30 04/17/20 24 04/18/2024 COMPR EHENS BILL METAB OLIC PANEL , PLASM A glucose 100 mg/dL 65-99 high Fasti ng refer ence inter martina For someo ne witho ut known diabe kushal, a gluco se value betwe en 100 and 125 mg/dL is consi stent with predi abete s and shoul d be confi rmed with a follo w-up test. Not Available [facility] [address], [address], 04/18/2024 15:42:32 04/17/20 24 04/18/2024 COMPR EHENS BILL METAB OLIC PANEL , PLASM A urea nitrogen (BUN) 10 mg/dL 7-25 normal Not Available [address], [address], 04/18/2024 15:42:32 04/17/20 24 04/18/2024 COMPR EHENS BILL METAB OLIC PANEL , PLASM A creatinine 0.71 mg/dL 0.60-1 .00 normal Not Available [address], [address], 04/18/2024 15:42:32 04/17/20 24 04/18/2024 COMPR EHENS BILL METAB OLIC PANEL , PLASM A eGFR 91 mL/mi n/1.7 3m2 > or = 60 normal Not Available [facility] [address], [address], 04/18/2024 15:42:32 04/17/20 24 04/18/2024 COMPR EHENS BILL METAB OLIC PANEL , PLASM A BUN/creatini ne ratio SEE NOTE: (calc ) 6-22 Not Repor rudy: BUN and Creat inine are withi n refer ence range . Not Available [facility] [address], [address], 04/18/2024 15:42:32 04/17/20 24 04/18/2024 COMPR EHENS BILL METAB OLIC PANEL , PLASM A sodium 133 mmol/ L 135-14 6 low Not Available [address], [address], 04/18/2024 15:42:32 04/17/20 24 04/18/2024 COMPR EHENS BILL METAB OLIC PANEL , PLASM A potassium 4.0 mmol/ L 3.4-4. 8 normal Not Available [address], [address], 04/18/2024 15:42:32 04/17/20 24 04/18/2024 COMPR EHENS BILL METAB OLIC PANEL , PLASM A chloride 99 mmol/ L 98-110 normal Not Available [address], [address], 04/18/2024 15:42:32 04/17/20 24 04/18/2024 COMPR EHENS BILL METAB OLIC PANEL , PLASM A carbon dioxide 27 mmol/ L 20-32 normal Not Available [address], [address], 04/18/2024 15:42:32 04/17/20 24 04/18/2024 COMPR EHENS BILL METAB OLIC PANEL , PLASM A calcium 9.5 mg/dL 8.6-10 .4 normal Not Available [address], [address], 04/18/2024 15:42:32 04/17/20 24 04/18/2024 COMPR EHENS BILL METAB OLIC PANEL , PLASM A protein, total 6.8 g/dL 6.4-8. 4 normal Not Available [address], [address], 04/18/2024 15:42:32 04/17/20 24 04/18/2024 COMPR EHENS BILL METAB OLIC PANEL , PLASM A albumin 4.1 g/dL 3.6-5. 1 normal Not Available [address], [address], 04/18/2024 15:42:32 04/17/20 24 04/18/2024 COMPR EHENS BILL METAB OLIC PANEL , PLASM A globulin 2.7 g/dL_ (calc ) 2.2-4. 0 normal Not Available [address], [address], 04/18/2024 15:42:32 04/17/20 24 04/18/2024 COMPR EHENS BILL METAB OLIC PANEL , PLASM A albumin/glob ulin ratio 1.5 (calc ) 0.9-2. 3 normal Not Available [address], [address], 04/18/2024 15:42:32 04/17/20 24 04/18/2024 COMPR EHENS BILL METAB OLIC PANEL , PLASM A bilirubin, total 0.5 mg/dL 0.2-1. 2 normal Not Available [address], [address], 04/18/2024 15:42:32 04/17/20 24 04/18/2024 COMPR EHENS BILL METAB OLIC PANEL , PLASM A alkaline phosphatase 83 U/L 37-153 normal Not Available [address], [address], 04/18/2024 15:42:32 04/17/20 24 04/18/2024 COMPR EHENS BILL METAB OLIC PANEL , PLASM A AST 16 U/L 10-35 normal Not Available [address], [address], 04/18/2024 15:42:32 04/17/20 24 04/18/2024 COMPR EHENS BILL METAB OLIC PANEL , PLASM A ALT 19 U/L 6-29 normal Not Available [address] [place], [address], 04/18/2024 15:42:32 04/17/20 24 04/18/2024 CBC (INCL UDES DIFF/ PLT) white blood cell count 8.2 thous and/u L 3.8-10 .8 normal Not Available [address], [address], 04/18/2024 15:42:33 04/17/20 24 04/18/2024 CBC (INCL UDES DIFF/ PLT) red blood cell count 3.92 ariela on/uL 3.80-5 .10 normal Not Available [facility] [address], [address], 04/18/2024 15:42:33 04/17/20 24 04/18/2024 CBC (INCL UDES DIFF/ PLT) hemoglobin 13.1 g/dL 11.7-1 5.5 normal Not Available [address], [address], 04/18/2024 15:42:33 04/17/20 24 04/18/2024 CBC (INCL UDES DIFF/ PLT) hematocrit 40.5 % 35.0-4 5.0 normal Not Available [address], [address], 04/18/2024 15:42:33 04/17/20 24 04/18/2024 CBC (INCL UDES DIFF/ PLT) MCV 103.3 fL 80.0-1 00.0 high Not Available [facility] [address], [address], 04/18/2024 15:42:33 04/17/20 24 04/18/2024 CBC (INCL UDES DIFF/ PLT) MCH 33.4 pg 27.0-3 3.0 high Not Available [facility] [address], [address], 04/18/2024 15:42:33 04/17/20 24 04/18/2024 CBC (INCL UDES DIFF/ PLT) MCHC 32.3 g/dL 32.0-3 6.0 normal For adult s, a sligh t decre ase in the calcu lated MCHC value (in the range of 30 to 32 g/dL) is most likel y not clini ji signi fican t; reji er, it shoul d be inter prete d with cauti on in [facility] n with other red cell lanny eters and the patie nt's clini leodan condi tion. Not Available [facility] [address], [address], 04/18/2024 15:42:33 04/17/20 24 04/18/2024 CBC (INCL UDES DIFF/ PLT) RDW 12.2 % 11.0-1 5.0 normal Not Available [facility] [address], [address], 04/18/2024 15:42:33 04/17/20 24 04/18/2024 CBC (INCL UDES DIFF/ PLT) platelet count 292 thous and/u L 140-40 0 normal Not Available [address], [address], 04/18/2024 15:42:33 04/17/20 24 04/18/2024 CBC (INCL UDES DIFF/ PLT) MPV 10.0 fL 7.5-12 .5 normal Not Available [facility] [email or web address] [address], [address], 04/18/2024 15:42:33 04/17/20 24 04/18/2024 CBC (INCL UDES DIFF/ PLT) absolute neutrophils 6535 cells /uL 1500-7 800 normal Not Available [address], [address], 04/18/2024 15:42:33 04/17/20 24 04/18/2024 CBC (INCL UDES DIFF/ PLT) absolute lymphocytes 943 cells /uL 850-39 00 normal Not Available [address], [address], 04/18/2024 15:42:33 04/17/20 24 04/18/2024 CBC (INCL UDES DIFF/ PLT) absolute monocytes 443 cells /uL 200-95 0 normal Not Available [address], [address], 04/18/2024 15:42:33 04/17/20 24 04/18/2024 CBC (INCL UDES DIFF/ PLT) absolute eosinophils 221 cells /uL 15-500 normal Not Available [address], [address], 04/18/2024 15:42:33 04/17/20 24 04/18/2024 CBC (INCL UDES DIFF/ PLT) absolute basophils 57 cells /uL 0-200 normal Not Available [address], [address], 04/18/2024 15:42:33 04/17/20 24 04/18/2024 CBC (INCL UDES DIFF/ PLT) neutrophils 79.7 % normal Not Available [address], [address], 04/18/2024 15:42:33 04/17/20 24 04/18/2024 CBC (INCL UDES DIFF/ PLT) lymphocytes 11.5 % normal Not Available [address], [address], 04/18/2024 15:42:33 04/17/20 24 04/18/2024 CBC (INCL UDES DIFF/ PLT) monocytes 5.4 % normal Not Available [address], [address], 04/18/2024 15:42:33 04/17/20 24 04/18/2024 CBC (INCL UDES DIFF/ PLT) eosinophils 2.7 % normal Not Available [address], [address], 04/18/2024 15:42:33 04/17/20 24 04/18/2024 CBC (INCL UDES DIFF/ PLT) basophils 0.7 % normal Not Available [address], [address], 04/18/2024 15:42:33 04/17/20 24 04/18/2024 T4, FREE T4, free 1.4 NG/dL 0.8-1. 8 normal Not Available [address], [address], 04/18/2024 15:42:34 04/17/20 24 04/18/2024 TSH TSH 3.22 mIU/L 0.40-4 .50 normal Not Available [address], [address], 04/18/2024 15:42:36 04/17/20 24 04/18/2024 VITAM IN D,25- OH,TO ASHLIE,I A vitamin D,25-oh,tota l,ia 27 NG/mL 30-100 low Vitam in D Statu s 25-OH Vitam in D: Defic iency : <20 ng/mL Insuf ficie ncy: 20 - 29 ng/mL Optim al: > or = 30 ng/mL For 25-OH Vitam in D testi ng on patie nts on D2-nvaa pplem entat ion and patie nts for whom quant itati on of D2 and D3 fract ions is requi red, the [facility] e[facility](TM ) 25-OH VIT D, (D2,D 3), LC/MS /MS is recom shaneka d: order code 18435 (quynh ents >2yrs ). See Note 1 Note 1 For addit ional infor claribel ortiz e refer to http: //mario Calvillo gnost ics.c om/fa q/FAQ 199 (This link is being provi ded for infor man nal/ educa adonis l purpo ses only. ) Not Available [facility][1] - [place] [address] [place], [address], 04/18/2024 15:42:37 04/22/20 21 04/22/2021 scree ramiro breas t jarrett, bilat [facility] [address] [place] [address] [facility] Name: CAINJOSE GalindoCORNELIA Access ion #: [id number] Sex: F : 1950 9 Locati on: RAD Attend ing Physic kaye: MOHINDER REYES CE Orderi ng Physic kaye: MOHINDER REYES CE Exam Date: 2020 7:29 AM Exam Name: MG SCRN BREAST JARRETT BILAT Admitt ing Diagno sis(es ): MAMMOG SUELLEN REPORT - FINAL EXAM: MG SCRN BREAST JARRETT BILAT HISTOR Y: screen ing mammog augusto 70-yea r-old female with no curren t breast compla ints. COMPAR CHIDI: 2019, 2018 TECHNI QUE: Bilate ral CC and MLO views of the breast s were perfor med. Digita l Mammog suellen images were obtain ed. CAD (compu ter assist ed detect ion) was utiliz ed. 3D Digita l breast tomosy nthesi s was perfor med and used in the interp retati on of images . FINDIN GS: There are scatte red areas of fibrog landul ar densit y. No masses , asymme tries, suspic ious calcif icatio ns, or leonard ectura l Page 1 of 2 [facility] t Name: CAINJOSE Galindo CORNELIA K Access ion #: [id number] Sex: F : 1950 7 Exam Date: 2020 7:29 AM Exam Name: MG SCRN BREAST JARRETT BILAT Admitt ing Diagno sis(es ): distor tion are seen. IMPRES PATTI: BIRADS 1: Assess ment comple te. Negati ve. Recomm end annual screen ing mammog suellen. Accord ing to the [employer], yearly mammog alfred are recomm ended starti ng at age 40 and contin uing as long as the woman is in good health . Clinic al Breast Exam should be part of the period ic health exam-a bout every 3 years for women in their 20s and 30s and every year for women 40 and over. Breast self-e xam is an option for women in their 20s. Any breast change noted on the breast self-e xam she would be report ed prompt ly to the liam [facility] er. A negati ve mammog suellen report should not discou rage follow -up or biopsy of a clinic ally signif icant findin g and/or abnorm ality. Dense breast tissue may obscur e small neopla sms. This liam brown has been entere d into a mammog suellen remind er system with a target date for her next mammog augusto. Create d and electr onical ly signed by: Balaji mai MD Signed Date: 2020 8:29 AM (CT) Dictat ed by: Balaji mai MD DD: 2020 8:28 AM (CT) DT: 2020 8:28 AM (CT) Page 2 of 2 [id number] [facility] (Imaging) [address] [place], [address], 07/12/2022 14:54:09 05/12/20 22 05/12/2022 scree ramiro hebert t jarrett, bilat [facility] [address] [place] [address] Liam brown Name: CORNELIA KUMAR Access ion #: [id number] Sex: F : 1950 9 Locati on: RAD Attend ing Physic kaye: MOHINDER REYES CE Orderi ng Physic kaye: MOHINDER REYES Exam Date: 2021 7:02 AM Exam Name: MG ALLEN BREAST JARRETT BILAT Admitt ing Diagno sis(es ): MAMMOG SUELLEN REPORT - FINAL EXAM: MG ALLEN BREAST JARRETT BILAT HISTOR Y: screen ing COMPAR CHIDI: 2019, 2020 TECHNI QUE: Bilate ral CC and MLO views of the breast s were perfor med. Digita l Mammog suellen images were obtain ed. CAD (compu ter assist ed detect ion) was utiliz ed. 3D Digita l breast tomosy nthesi s was perfor med and used in the interp retati on of images . FINDIN GS: There are scatte red areas of fibrog landul ar densit y. No masses , asymme tries, suspic ious calcif icatio ns, or leonard ectura l Page 1 of 2 [facility] Liam brown Name: CORNELIA KUMAR Access ion #: [id number] Sex: F : 1950 9 Exam Date: 2021 7:02 AM Exam Name: MG ALLEN BREAST JARRETT BILAT Admitt ing Diagno sis(es ): distor tion are seen. IMPRES PATTI: BIRADS 1: Assess ment comple te. Negati ve. Recomm end annual screen ing mammog suellen. Accord ing to the [employer], yearly mammog alfred are recomm ended starti ng at age 40 and contin uing as long as the woman is in good health . Clinic al Breast Exam should be part of the period ic health exam-a bout every 3 years for women in their 20s and 30s and every year for women 40 and over. Breast self-e xam is an option for women in their 20s. Any breast change noted on the breast self-e xam she would be report ed prompt ly to the [facility]. A negati ve mammog suellen report should not discou rage follow -up or biopsy of a clinic ally signif icant findin g and/or abnorm ality. Dense breast tissue may obscur e small neopla sms. This liam brown has been entere d into a mammog suellen remind er system with a target date for her next mammog augusto. Create d and electr onical ly signed by: Robert casas MD Signed Date: 2021 2:34 PM (CT) Dictat ed by: Robert casas MD DD: 2021 2:34 PM (CT) DT: 2021 2:34 PM (CT) Page 2 of 2 [id number] [facility] (Imaging) [address] [place], [address], 07/12/2022 14:54:09 05/02/20 23 05/02/2023 scree ramiro breas t jarrett, bilat [facility] [address] [place] [address] Patien t Name: CORNELIA KUMAR Access ion #: [id number] Sex: F : 1950 5 Locati on: RAD Attend ing Physic kaye: MOHINDER REYES CE Orderi ng Physic kaye: MOHINDER REYES CE Exam Date: 2022 8:39 AM Exam Name: MG ALLEN BREAST JARRETT BILAT Admitt ing Diagno sis(es ): MAMMOG SUELLEN REPORT - FINAL EXAM: SCRN BREAST JARRETT BILAT HISTOR Y: SCREEN ING MAMMOG AUGUSTO 72-yea r-old female with no curren t breast compla ints. COMPAR CHIDI: 2021, 2021, 2018 TECHNI QUE: Bilate ral CC and MLO views of the breast s were perfor med. Digita l Mammog suellen images were obtain ed. CAD (compu ter assist ed detect ion) was utiliz ed. 3D Digita l breast tomosy nthesi s was perfor med and used in the interp retati on of images . FINDIN GS: The breast s are almost entire ly fatty. No new masses , develo ping asymme tries, suspic ious calcif icatio ns, or Page 1 of 2 [facility] Patien t Name: CORNELIA KUMAR Access ion #: [id number] Sex: F : 1950 5 Exam Date: 2022 8:39 AM Exam Name: MG ALLEN BREAST JARRETT BILAT Admitt ing Diagno sis(es ): leonard ectura l distor tion are seen. IMPRES PATTI: BIRADS 1: Assess ment comple te. Negati ve. Recomm end annual screen ing mammog suellen. Accord ing to the [employer], yearly mammog alfred are recomm ended starti ng at age 40 and contin uing as long as the woman is in good health . Clinic al Breast Exam should be part of the period health exam-a bout every 3 years for women in their 20s and 30s and every year for women 40 and over. Breast self-e xam is an option for women in their 20s. Any breast change noted on the breast self-e xam she would be report ed prompt ly to the [facility] care [facility] er. A negati ve mammog suellen report should not discou rage follow -up or biopsy of a clinic ally signif icant findin g and/or abnorm ality. Dense breast tissue may obscur e small neopla sms. This liam brown has been entere d into a mammog suellen remind er system with a target date for her next mammog augusto. Create d and electr onical ly signed by: Balaji mai MD Signed Date: 2022 10:25 AM (CT) Dictat ed by: Balaji mai MD DD: 2022 10:25 AM (CT) DT: 2022 10:25 AM (CT) Page 2 of [id number] [place] [address] (Imaging) [address] [place], [address], 05/02/2023 12:03:40 05/02/20 23 05/02/2023 DEXA, axial skele ton [facility] [address] [place] [address] [phone] Liam brown Name: CORNELIA KUMAR Access ion #: [id number] Sex: F : 1950 5 Dictat ed By: Ramirez Escalante Attend ing Physic kaye: MOHINDER REYES Orderi Physic kaye: MOHINDER REYES CE Exam Date: 2022 08:39 AM Exam Name: XR DEXA-H IPS PELVIS SPINE Admitt ing Diagno sis(es ): INDICA TION: Postme nopaus al osteop orosis DEXA SCAN: BONE DENSIT Y REPORT : AP SPINE (L1-L4 ) : T Score: 1.9 LEFT HIP TOTAL : T Score: -0.7 RT HIP TOTAL : T Score: -0.9 TOTAL BILAT HIP AVG: T Score: -0.8 10 YEAR FRACTU RE RISK* NA IMPRES PATTI: Normal bone minera lizati on ------ ------ ------ ------ ------ ------ ------ ------ ----- *FRAX versio n 3.08. Fractu re probab ility calcul ated for an untrea rudy patien t. Fractu re probab ility may be lower if the patien t has receiv ed treatm ent. T-scor e: compar chidi by hamilton uriostegui deviat ion (SD) to a young adult popula tion, louis d for sex and ethnic ity (used for postme nopaus al women and men >50 years) and classi fied by WHO criter ia. ?-1.0: normal <-1.0 to >-2.5: osteop enia ?-2.5: osteop orosis ?-2.5 plus fragil ity fractu re: severe osteop orosis Page 1 [facility] [address] [facility] [place] [address] [phone] Liam brown Name: CORNELIA KUMAR Access ion #: [id number] Sex: F : 1950 5 Dictat ed By: Ramirez Escalante Attend ing Physic kaye: RENÉE SU ng Physic kaye: MOHINDER REYES CE Exam Date: 2022 08:39 AM Exam Name: XR DEXA-H IPS PELVIS SPINE Admitt ing Diagno sis(es ): Z-scor e: compar ed by SD to an age, sex, and ethnic ity popula tion (used for premen opausa l women, men <50 years, and childr en instea d of T-scor e WHO criter ia 4) <-2.0: below expect ed range/ low bone densit y for age, and a cause should be sought Electr onical ly Signed by: Ramirez Escalante at 2022 15:06: 52 PM Page [address] (Imaging) [address] [place], [address], 05/02/2023 16:58:52 01/24/20 24 01/24/2024 MRI, hip, w/o contr ast No observ ation record ed. [address] [facility] [address], [place], [address], 01/24/2024 21:19:12 03/25/20 24 03/25/2024 XR, knee No observ ation record ed. [address], [place], [address], 03/26/2024 08:39:01 05/12/20 24 05/12/2024 scree ramiro breas t jarrett, bilat [facility] [address] [place] [address] Liam t Name: TOYA Medley CORNELIA White Access ion #: [id number] Sex: F : 1950 6 Locati on: RAD Attend ing Physic kaye: MOHINDER REYES Orderi ng Physic kaye: MOHINDER REYES Exam Date: 2023 6:32 AM Exam Name: MG ALLEN BREAST JARRETT BILAT Admitt ing Diagno sis(es ): MAMMOG SUELLEN REPORT - FINAL EXAM: MG ALLEN BREAST JARRETT BILAT HISTOR Y: screen ing for mammo 73-yea r-old female with no curren t breast compla ints. COMPAR CHIDI: Mammog suellen dated 2022 and 2021. TECHNI QUE: Bilate ral CC and MLO views of the breast s were perfor med. Digita l Mammog suellen images were obtain ed. CAD (compu ter assist ed detect ion) was utiliz ed. 3D Digita l breast tomosy nthesi s was perfor med and used in the interp retati on of images . FINDIN GS: The breast s are almost entire ly fatty. No masses , asymme tries, suspic ious calcif icatio ns, or leonard ectura l Page 1 of 2 [facility] Name: CORNELIA KUMAR Access ion #: [id number] Sex: F : 1950 6 Exam Date: 2023 6:32 AM Exam Name: MG ALLEN BREAST JARRETT BILAT Admitt ing Diagno sis(es ): distor tion are seen. IMPRES PATTI: BIRADS 1: Assess ment comple te. Negati ve. Recomm end annual screen ing mammog suellen. Accord ing to the [employer], yearly mammog alfred are recomm ended starti ng at age 40 and contin uing as long as the woman is in good health . Clinic al Breast Exam should be part of the period health exam-a bout every 3 years for women in their 20s and 30s and every year for women 40 and over. Breast self-e xam is an option for women in their 20s. Any breast change noted on the breast self-e xam she would be report ed prompt ly to the [facility] er. A negati ve mammog suellen report should not discou rage follow -up or biopsy of a clinic ally signif icant findin g and/or abnorm ality. Dense breast tissue may obscur e small neopla sms. This patien t has been entere d into a mammog suellen remind er system with a target date for her next mammog augusto. Create d and electr onical ly signed by: Balaji mai MD Signed Date: 2023 8:54 AM (CT) Dictat ed by: Balaji mai MD DD: 2023 8:54 AM (CT) DT: 2023 8:54 AM (CT) Page 2 of [address] (Imaging) [address] [place], [address], 05/12/2024 13:44:09 Result Notes None recorded. Problems Name Problem SNOMED Code Status Onset Date Resolution Date Notes Provider Name and Address Organization Details Recorded Time [place] 827797317 Active Not Available [facility] 3 14:49:38 Pure hyperchole sterolemia 954229955 Active Not Available [facility] 3 14:49:39 Epigastric hernia 686304795 Active Not Available [facility] 3 14:49:39 Postartifi cial menopausal syndrome 07322061 Active Not Available [facility] 3 14:49:39 Vitamin D deficiency 88633511 Active 2021 Not Available [facility] 3 14:49:39 History of polyp of colon 044679027 Active 2019 Not Available [facility] 3 14:49:39 Cervical radiculopa thy 17037081 Active Not Available [facility] 3 14:49:39 Herniation of nucleus pulposus 36378525 Active Not Available [facility] 3 14:49:39 Sciatica 09140946 Active 2022 Subha De La Cruz CMA null, [place] [employer] [facility] 3 16:03:58 Senile osteoporos is 82826995 Active 2022 Keyonna Carty null, [employer] [facility] 3 15:46:19 Low back pain 713024978 Active 2023 Subha De La Cruz CMA null, [facility] 4 11:08:32 Pain of left hip joint 3531458329818 00 Active 2023 Frederic Reyes MD [address], [place], [address] , [facility] 4 15:41:03 Hip pain 64485525 Active 2023 Subha De La Cruz CMA null, [facility] 4 12:52:50 Osteoarthr itis 885452277 Active 2023 Frederic Reyes MD [address], [address], [place], [address] , [facility] [employer] [facility] 4 10:35:07 Obese class I [id number] 07 Active 2023 Frederic Reyes MD [address], [address], [place], [address] , [facility] [employer] [facility] [employer] [facility] 4 10:41:02 Acute sinusitis 61393254 Active 2023 Frederic Reyes MD [address], [place], [address] , [facility] [employer] [facility] [employer] [facility] 4 12:43:33 Problem Notes None recorded. Procedures Surgical History Date Name Laterality Status Provider Name and Address Organization Details Recorded Time 04/16/20 24 Medicare Wellness CPT Code, subsequent completed Rebeca Mayo RN [facility] [employer] [facility] 04/16/2024 10:26:26 04/11/20 23 Medicare Wellness CPT Code, subsequent completed Rebeca Mayo RN [facility] [employer] [facility] 04/11/2023 15:34:03 04/05/20 20 Most Recent Bone Density completed Not Available [facility] 07/12/2022 14:45:39 11/27/19 19 Date of Last Colonoscopy completed Not Available [facility] 07/12/2022 14:45:39 Imaging Results Imaging Date Name Status LastModified by Organiz [facility] Details LastModified Time 05/12/2022 screening breast jarrett, bilat completed [id number] [facility] (Imaging) [address] [place], [address], 07/12/2022 14:54:09 04/22/2021 screening breast jarrett, bilat completed [id number] [facility] (Imaging) [address] [place], [address], 07/12/2022 14:54:09 05/02/2023 screening breast jarrett, bilat completed [address] (Imaging) [address] [place], [address], 05/02/2023 12:03:40 05/02/2023 DEXA, axial skeleton completed [address] (Imaging) [address] [place], [address], 05/02/2023 16:58:52 01/24/2024 MRI, hip, w/o contrast completed [address] [facility] [address], [place], [address], 01/24/2024 21:19:12 03/25/2024 XR, knee completed [address], [place], [address], 03/26/2024 08:39:01 05/12/2024 screening breast jarrett, bilat completed [address] (Imaging) [address] [place], [address], 05/12/2024 13:44:09 Procedure Notes None recorded. Medical Equipment None Reported. Allergies Allergen ID Allergen Name Allergen Category Reaction Reaction Severity Criticality Documentation Date Start Date Code Code System Note Provider Name and Address Organization Details Recorded Time 64513 morphine medicatio n vomiting Not available Not available 07/12/2022 7052 RxNorm Not Available [facility] 14:54:01 Medications Name Sig Start Date Stop Date Status Note LastModified by Organization Details LastModified Time amoxicillin 500 mg capsule Take 1 capsule 3 times a day by oral route for 10 days. 05/09 completed Not Available Not Available Not Available atorvastati n 40 mg tablet TAKE 1 TABLET DAILY 2024 active Not Available Not Available Not Avai lable prednisone 10 mg tablet TAKE 1 TABLET BY MOUTH TWICE DAILY 04/16 completed Not Available Not Available Not Available Medrol (Rashaad) 4 mg tablets in a dose pack TAKE BY ORAL ROUTE DIRECTED PER PACKAGE INSTRUCTI ONS 04/16 completed Not Available Not Available Not Available ondansetron 8 mg disintegrat ing tablet DISSOLVE 1 TABLET ON THE TONGUE EVERY 8 HOURS NEEDED FOR NAUSEA 04/16 completed Not Available Not Available Not Available oxycodone-a cetaminophe n 5 mg-325 mg tablet TAKE 1 TABLET BY MOUTH EVERY 4 TO 6 HOURS NEEDED FOR PAIN 04/16 completed Not Available Not Available Not Available Tessalon Perles 100 mg capsule Take 1 capsule 3 times a day by oral route. 09/12 completed Not Available Not Available Not Available diclofenac sodium 75 mg tablet,ivan yed release TAKE 1 TABLET BY MOUTH TWICE A DAY active Not Available Not Available No t Available mupirocin 2 % topical ointment 04/16 completed Not Available Not Available Not Available amoxicillin 875 mg-potassiu m clavulanate 125 mg tablet Take 1 tablet every 12 hours by oral route. active Not Available Not Available No t Available Os-Leodan 500 + D3 twice a day 03/29 completed Not Available Not Available Not Available GaviLyte-G 236 gram-22.74 gram-6.74 gram-5.86 gram oral solution active Not Available Not Available Not Available Os-Leodan 500 + D3 500 mg-15 mcg (600 unit) tablet Take 1 tablet twice a day by oral route. 2021 active Not Available Not Available Not Avai lable tramadol 100 mg tablet TAKE 1 TABLET BY MOUTH EVERY 4 TO 6 HOURS NEEDED FOR PAIN 04/16 completed Not Available Not Available Not Available Vitals Date Recorded Body mass index (BMI) Body mass index (BMI) Body height Body height Oxygen saturation Oxygen saturation in Arterial blood by Pulse oximetry Oxygen saturation Oxygen saturation in Arterial blood by Pulse oximetry Pain severity - 0-10 verbal numeric rating [Score] - Reported Heart rate Heart rate Body temperature Body temperature Body weight Body weight Systolic blood pressure Diastolic blood pressure Systolic blood pressure Diastolic blood pressure Provider Name and Address Organization Details Last Updated DateTime 3 35.2 kg/m2 35.6 kg/m2 171.45 cm 171.45 cm 99 % 99 % 98 % 98 % 0 78 /min 75 /min 97.4 [degF] 97 [degF] 870788. 06 g 174185. 84 g 116 mm[Hg] 72 mm[Hg] 122 mm[Hg] 78 mm[Hg] Not Available [employer] 3 14:47:00 Date Recorded Heart rate Provider Name an d Address Organization Details Last Updated DateTime 04/11/2023 100 /min Frederic Reyes MD [address] [place] [address], [address], [email or web address] 04/11/2023 15:30:26 Date Recorded Body temperature Oxygen saturation Oxygen saturation in Arterial blood by Pulse oximetry Systolic blood pressure Diastolic blood pressure Provider Name and Address Organization Details Last Updated DateTime 3 97 [degF] 98 % 98 % 122 mm[Hg] 60 mm[Hg] Bridget Rodriges [facility] 3 15:14:15 Date Recorded Pain severity - 0-10 verbal numeric rating [Score] - Reported Provider Name and Address Organization Details Last Updated DateTime 04/11/2023 0 Rebeca Mayo RN [facility] 04/11/2023 15:34:18 Date Recorded Body height Body mass index (BMI) Body weight Heart rate Body temperature Oxygen saturation Oxygen saturation in Arterial blood by Pulse oximetry Systolic blood pressure Diastolic blood pressure Provider Name and Address Organization Details Last Updated DateTime 4 171.45 cm 34.7 kg/m2 074513. 28 g 85 /min 97.6 [degF] 97 % 97 % 128 mm[Hg] 72 mm[Hg] RAFAELA Sandoval [employer] 4 15:24:37 Date Recorded Body height Body weight Heart rate Body temperature Oxygen saturation Oxygen saturation in Arterial blood by Pulse oximetry Systolic blood pressure Diastolic blood pressure Provider Name and Address Organization Details Last Updated DateTime 4 171.45 cm 40332.8 1 g 57 /min 97 [degF] 98 % 98 % 126 mm[Hg] 78 mm[Hg] RAFAELA Sandoval [place] - [facility] 10:23:25 Social History Question Answer Notes LastModified by Organizat ion Details LastModified Time Tobacco Smoking Status Never Smoker Not Available [facility] 07/12/2022 14:45:15 Do You Have An Advance Directive? Yes MIGRATION.796897 6380 Information not available 07/12/2022 What Is Your Level Of Alcohol Consumption? None MIGRATION.535857 3188 Information not available 07/12/2022 Are You Blind Or Do You Have Difficulty Seeing? No MIGRATION.697643 4696 Information not available 07/12/2022 Are You Deaf Or Do You Have Serious Difficulty Hearing? No MIGRATION.754012 4422 Information not available 07/12/2022 What Type Of Diet Are You Following? REGULAR MIGRATION.196676 3249 Information not available 07/12/2022 Have There Been Any Changes To Your Family Or Social Situation? No MIGRATION.672115 2751 Information not available 07/12/2022 What Is The Fluoride Status Of Your Home? Unknown [email or web address] Information not available 04/11/2023 Are There Any Guns Present In Your Home? Yes MIGRATION.933896 9532 Information not available 07/12/2022 Do You Use Insect Repellent Routinely? No MIGRATION.248237 3231 Information not available 07/12/2022 Where Do You Live? [place]House MIGRATION.065514 3575 Information not available 07/12/2022 Guns Present In The Home? Yes [email or web address] Information not available 04/11/2023 Are You Able To Care For Yourself? Yes Information not available 04/11/2023 Are You Blind Or Do Yo Have Difficulty Seeing? No [email or web address] Information not available 04/11/2023 Are You Deaf Or Do You Have Serious Difficulty Hearing? No [email or web address] Information not available 04/11/2023 Live Alone Of With Others? With Others [email or web address] Information not available 04/11/2023 Do You Have A Medical Power Of Echocardiologist? Yes MIGRATION.731497 2774 Information not available 07/12/2022 What Was The Date Of Your Most Recent Tobacco Screening? 04/16/2024 [email or web address] Information not available 04/16/2024 Do You Have Any Pets? Yes MIGRATION.581254 9089 Information not available 07/12/2022 What Is Your Relationship Status? MIGRATION.835924 5746 Information not available 07/12/2022 Do You Use Your Seat Belt Or Car Seat Routinely? Yes [email or web address] Information not available 04/11/2023 Do You Have Smoke And Carbon Monoxide Detectors In Your Home? Yes MIGRATION.585649 7080 Information not available 07/12/2022 Are You Passively Exposed To Smoke? No MIGRATION.454343 5485 Information not available 07/12/2022 Are There Any Smokers In Your House? No MIGRATION.054353 1959 Information not available 07/12/2022 Do You Use Sunscreen Routinely? Yes MIGRATION.008685 4683 Information not available 07/12/2022 Have You Recently Traveled Abroad? No MIGRATION.434212 2875 Information not available 07/12/2022 Do You Have Any Dietary Restrictions? No MIGRATION.372666 7748 Information not available 07/12/2022 Sex: Unknown Functional Status Question Answer Note LastModified by Organizat ion Details LastModified Time Do you have difficulty walking or climbing stairs? No MIGRATION.4778965 026 Information not available 07/12/2022 Do you have transportation difficulties? No MIGRATION.1665856 026 Information not available 07/12/2022 Are you able to walk? YESASSIST [email or web address] Information not available 04/16/2024 Do you have difficulty doing errands alone? No MIGRATION.2861138 026 Information not available 07/12/2022 Are you able to care for yourself? Yes MIGRATION.7275658 026 Information not available 07/12/2022 Do you have difficulty dressing or bathing? No MIGRATION.7557533 026 Information not available 07/12/2022 What is your exercise level? Occasional [email or web address] Information not available 04/16/2024 Mental Status Question Answer Note LastModified by Organizat ion Details LastModified Time Do you have difficulty concentrating, remembering or making decisions? No MIGRATION.[id number] 6 Information not available 07/12/2022 Family History Nothing Reported Notes:Mother 38 yea rs old Father 68 years old Mother Hx: Leukemia Father Hx: Cerebral Aneurysm Medical History Condition Response NERVE DISEASE N BLINDNESS N RHEUMATIC FEVER N KIDNEY STONES N BLADDER PROBLEMS N MRSA N OTHER # 1 N POLIO N LUNG DISEASE/DISORDER N HISTORY OF DRUG ABUSE N RADIATION / CHEMOTHERAPY N COPD N Other # 2 N BLOOD DISEASES N EAR OR HEARING PROBLEMS N MUMPS N SHINGLES N BOWEL PROBLEMS N DEPRESSION (INCLUDING POST ) N STROKE/TIA N ULCERS N BENIGN PROSTATIC HYPERPLASIA N MEASLES N HYPOTENSION N MYOCARDIAL INFARCTION N OBESITY N GERD/NAUSEA N ANEURYSM N URINARY/BLADDER/KIDNEY PROBLEMS N CORONARY ARTERY DISEASE (CAD) N ADDICTION CONCERNS N ENDOMETRIOSIS N Impotence N USE OF BLOOD THINNERS N SKIN PROBLEMS N GASTROINTESTINAL DISORDER N PERIPHERAL VASCULAR DISEASE N MUSCLE,JOINT OR BONE PROBLEMS N GASTROINTESTINAL BLEEDING N BLOOD CLOTS N ASTHMA N CATARACTS N ERECTILE DYSFUNCTION N VARICOSITIES N GI PROBLEMS N Low Testosterone N INFERTILITY N AIDS/HIV N CHEMOTHERAPY / RADIATION N LIVER DISEASE N MALE HYPOGONADISM N HYPERTENSION N Deficiency N TOURETTE'S N ANXIETY DISORDER N BLOOD TRANSFUSION N ANEMIA/BLOOD DISORDER N CHRONIC EAR INFECTIONS N BRONCHITIS N TUBERCULOSIS N GLAUCOMA N FOOT PROBLEM N DIVERTICULITIS N CHICKENPOX N SLEEP APNEA N INFECTIOUS DISEASE N HEART ARRHYTHMIA N PROSTATE N INSOMNIA N HIGH CHOLESTEROL / HYPERLIPIDEMIA Y HYPERTHYROIDISM N EYE PROBLEMS N EDEMA N CHRONIC PAIN SYNDROME N HYPOTHYROIDISM N CAROTID BLOCKAGE N CONSTIPATION N BACK / NECK PROBLEMS Y HAVE YOU BEEN HOSPITALIZED OR SEEN IN [facility] IN THE PAST YEAR ? N ATHEROSCLEROSIS N BREAST PROBLEMS N DIALYSIS N ECZEMA N OSTEOPOROSIS N ARTHRITIS N NO SIGNIFICANT PAST MEDICAL HISTORY N APPENDICITIS N DIABETES, TYPE N BAD TEETH N ENT N HEARTBURN / REFLUX N AUTISM SPECTRUM DISORDER (ASD) N HEPATITIS / LIVER DISEASE N GOUT N SLEEP DISORDER N ALZHEIMER'S DISEASE N Brain Problems N HERPES N DEMENTIA N HEADACHES/MIGRAINES N SEIZURES/EPILEPSY N VASCULAR DISEASE N PACEMAKER N Blood Disorder N DIZZINESS N HEART DISEASE/HEART PROBLEMS N KIDNEY DISEASE N MULTIPLE SCLEROSIS N CARDIAC ARRHYTHMIA N CANCER: SPECIFY N ATRIAL FIBRILLATION N Gall Stones N PULMONARY EMBOLISM N AUTOIMMUNE DISEASE N Gynecological History Statement/Question Response Date of Last Mammogram 04/05/2020 Date of Last Colonoscopy 11/26/2018 Most Recent Bone Density 04/05/2020 Obstetrics History GPAL:G 0 P 0 0 0 0 Immunizations Vaccine Type Date Status Note Provider [place] mai and Address Organization Details Recorded Time influenza, unspecified formulation 3 completed JESUS Be [place] [facility] 04/11/2023 15:14:58 Influenza, split virus, trivalent, preservative 3 completed Not Available [facility] 07/12/2022 14:53:52 SARS-COV-2 (COVID-19) vaccine, UNSPECIFIED 2 completed Not Available [facility] 07/12/2022 14:53:52 Influenza, high-dose, trivalent, PF 2 completed Not Available [facility] 07/12/2022 14:53:52 COVID-19, mRNA, LNP-S, PF, 30 mcg/0.3 mL dose 1 completed Not Available [facility] 07/12/2022 14:53:52 Influenza, split virus, quadrivalent, preservative 1 completed Not Available [facility] 07/12/2022 14:53:52 COVID-19, mRNA, LNP-S, PF, 30 mcg/0.3 mL dose 1 completed Not Available [facility] 07/12/2022 14:53:53 COVID-19, mRNA, LNP-S, PF, 30 mcg/0.3 mL dose 1 completed Not Available [facility] 07/12/2022 14:53:53 Influenza, split virus, trivalent, preservative 4 completed Not Available [facility] 07/12/2022 14:53:53 pneumococcal polysaccharide PPV23 9 completed Not Available [facility] 07/12/2022 14:53:53 Influenza, high-dose, trivalent, PF 8 completed Not Available [facility] 07/12/2022 14:53:53 Pneumococcal conjugate PCV 13 8 completed Not Available [facility] 07/12/2022 14:53:53 Influenza, split virus, quadrivalent, PF 6 completed Not Available [facility] 07/12/2022 14:53:53 Influenza, split virus, quadrivalent, preservative 7 completed Not Available [facility] 07/12/2022 14:53:53 Influenza, split virus, quadrivalent, preservative 5 completed Not Available [facility] 07/12/2022 14:53:53 Pneumococcal conjugate PCV20, polysaccharide [id number] conjugate, adjuvant, PF 4 completed RAFAELA Sandoval, [place] [facility] 04/16/2024 12:26:08 Past Encounters Encounter ID Performer Location Encounter Start Date Encounter Closed Date Diagnosis/Indication Diagnosis SNOMED-CT Code Diagnosis ICD10 Code Diagnosis Note [id number] [facility] [address] [address] 03/30/2021 00:00:00 03/30/2021 11:22:50 [id number] [facility] [address] [id number] 03/29/2022 00:00:00 03/29/2022 10:46:57 [id number] Frederic Reyes MD [facility] Internal Med [facility] [address] [id number] 04/11/2023 14:42:52 04/11/2023 15:48:03 Pure hypercholesterolemia 467284606 E78.00 History of polyp of colon 924887935 Z86.010 Sciatica 23120991 M54.30 Adult [facility] th examination 643769200 Z00.00 Screening for disorder 827807660 Z13.9 Vitamin D deficiency 347 80008 E55.9 [id number] Frederic Reyes MD [facility] Internal Med [facility] [address] [address] 10/10/2023 15:03:15 10/10/2023 15:47:11 Pain of left hip joint [id number] 77686 M25.786 [id number] Frederic Reyes MD [facility] [place] [facility] [address] [address] 04/16/2024 10:17:00 04/16/2024 10:53:56 Adult health examination 427952798 Z00.00 Screening for disorder 656423111 Z13.9 Pure hypercholesterolemia 445191777 E78.00 History of polyp of colon 031350376 Z86.0100 Osteoarthritis 817765311 M19.90 Obese class I 7711588989 19823 E66.811 Vitamin D deficiency 347 82788 E55.9 Health Concerns Section Related Observation LastModified by Organization Detai ls LastModified Time None Recorded Concern Status LastModified by Organization Details LastModified Time None Recorded Advance Directives Directive Y: Payers Encounter Date Sequence Insurance Name Policy Number Policy Santiago Covered Member ID Santiago Member ID Guarantor Name 04/11/2023 1 [employer] (MEDICARE REPLACEMENT PPO) [id number] 1 Cornelia Estes [id number] Cornelia Estes 10/10/2023 1 [employer] (MEDICARE REPLACEMENT PPO) [id number] 1 Cornelia Estes [id number] Cornelia Estes 04/16/2024 1 [employer] (MEDICARE REPLACEMENT PPO) [id number] Cornelia Estes [id number] Cornelia Estes Notes Date Note Type Note Provider Name and Address Organization Details Recorded Time 3 text/html Patient Name: Cornelia EstesDate Of Service: Sunday ( 04.11.2023 ): 1950 Age: 72 Vital Signs:Blood Pressure: Sitting Rt. Arm 122/60Pulse: Sitting 100 /min and RegularRespiratory Rate: 12 Chief Complaint: Addressed in HPI Problems or conditions discussed in the HPI were the only ones reviewed during the encounter.Only social and family history addressed in the HPI were reviewed during this encounter. A significant, separate E/M service was performed to evaluate the current and new problems. Attendant(s): NoneConstitutional and Systemic Symptoms:none Medication Reconciliation: from medication list. History of Present Illness Reviewed the findings of the preventative health visit. Addressed all areas with the patient, patient's family or caregivers. Preventative examinations and testing immunizations - vaccinations, colonic neoplasm screening and mammograms all reviewed and ordered where patient was amenable to the recommendations. Cognitive function was normal. Depression addressed and where necessary medications were adjusted or instituted. End of life and living will briefly discussed with patient and where these can be filled out and legally executed. Other blood and imaging studies were ordered if considered necessary. Other recommendations may be found in the encounter note. #1. Type II Hypercholesterolaemia: Currently taking medication and tolerating well. No interval complaints of any muscle pain or arthralgia. No significant liver changes with medications. Last lipid panel: fair control. Therapy reviewed regarding treatment of cholesterol management and include diet and Lipitor. #2. Colon polyps: Hx of colon polyps. No interval complaints of any bleeding or change in bowel habits. Last colonoscopy was three years ago. #3. History of bilateral sciatica in the past. Current has not been bothered by any significant lower back pain or radiation of pain down into the legs. No numbness, tingling, weakness or any other neuro sensory or motor deficits. Is restricted as far as activity because recent foot surgery.:Medication List Reviewed and Reconciled 04/11/2023Os-leodan D 500 MG One Tid For CalciumLipitor 40 MG (TABLET - ORAL) One Daily For CholesterolADRs List Reviewed 04/11/2023Morphine Nausea And VomtingVaccination and Nvgqzmpbaxtz8607-97 Mdnzvvolw8042-78 Covid Booster Qtowvc6034-88 Covid Gmyntx4208-41 Ryswzmyiu4569-73 Prevnar 13 GcSurgical HistoryRight Hammer Toe, Left Bunion Surgery, Lap Cholecystectomy, Rt. 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 This represents approximately a 2.6% change in weight. Weight change attributable to lifestyle changes. Vital Signs:Blood Pressure: Sitting Rt. Arm 128/72Pulse: Sitting 85 /min and RegularRespiratory Rate: 12Height 67.5 in or 1.7 mWeight 225 lb or 102.1 kgBMI 34.7Temperature: 97.6 F or 36.4 CPulse Oximetry: 97 % at rest on no oxygen Chief Complaint: Addressed in HPI Problems or conditions discussed in the HPI were the only ones reviewed during the encounter.Only social and family history addressed in the HPI were reviewed during this encounter. Attendant(s): NoneConstitutional and Systemic Symptoms:none Medication Reconciliation: from medication list. History of Present Illness #1. Proximally 3-3 and half month history of pain and discomfort in the lower back with some radiation down into the flexor area of the left hip. Denied any associated injury. Does work out on a regular basis. The pain is aggravated by standing and by ambulation. As long as the patient remains still the pain is bearable. Denies any numbness, tingling, weakness or any other neurosensory or motor deficits. There is no saddle anesthesia. No incontinence of urine or stool.: Active Medication ListOs-leodan D 500 MG One Tid For CalciumLipitor 40 MG (TABLET - ORAL) One Daily For Cholesterol Adverse Drug Reactions ReviewedMorphine Nausea And Vomting Vaccination and Fcoskhebvqth4043-09 Ewklsllpc0924-82 Covid Booster Ssqtwo4681-04 Covid Twpdkw2148-65 Sdeiswhxu4153-57 Prevnar 13 Gc Surgical Vmtjguc6562-59 Right Hammer Tti4917-22 Left Bunion Dzjmmah9312-68 Lap Lgseuvqcfqtlyti3544-11 Rt. 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 This represents approximately a 7.1% change in weight. Weight change attributable to lifestyle changes. Vital Signs:Blood Pressure: Sitting Rt. Arm 126/78Pulse: Sitting 57 /min and RegularRespiratory Rate: 16Height 67.5 in or 1.7 mWeight 209 lb or 94.8 kgBMI 32.2Temperature: 97 F or 36.1 CPulse Oximetry: 98 % at rest on no oxygen Chief Complaint: Addressed in HPI Problems or conditions discussed in the HPI were the only ones reviewed during the encounter.Only social and family history addressed in the HPI were reviewed during this encounter. A significant, separate E/M service was performed to evaluate the current and new problems. Attendant(s): NoneConstitutional and Systemic Symptoms:none Medication Reconciliation: from medication list. History of Present Illness Reviewed the findings of the preventative health visit. Addressed all areas with the patient, patient's family or caregivers. Preventative examinations and testing immunizations - vaccinations, colonic neoplasm screening, mammograms and DEXA Scan all reviewed and ordered where patient was amenable to the recommendations. Cognitive function was normal. Depression addressed and where necessary medications were adjusted or instituted. End of life and living will briefly discussed with patient and where these can be filled out and legally executed. Other blood and imaging studies were ordered if considered necessary. Other recommendations may be found in the encounter note. #1. Type II Hypercholesterolaemia: Currently taking medication and tolerating well. No interval complaints of any muscle pain or arthralgia. No significant liver changes with medications. Last lipid panel: fair control. Therapy reviewed regarding treatment of cholesterol management and include diet and Lipitor. #2. Colon polyps: Hx of colon polyps. No interval complaints of any bleeding or change in bowel habits. Last colonoscopy was five years ago. #3. Hx of DJD stable. No interval complaints of any additional joint pain, swelling or redness. Joints most involved include hands, knees and hips. Medications: Diclofenac Sodium The DJD does interfere with ADL and ambulation. #4. Hx of obesity. Currently Class 1 Obesity BMI 30-34.99. Has tried numerous dietary support and supplements with no benefit. Instructed on the health consequences of the obese status particularly cancer - diabetes and heart disease. Discussed other modalities of weight loss no . Potential candidate for bariatric surgery: No. Wishes to be evaluated by Dietary: No and was offered to be evaluated and instructed by capacity analyst on weight loss diet. Active Medication ListOs-leodan D 500 MG One Tid For CalciumLipitor 40 MG (TABLET - ORAL) One Daily For CholesterolDiclofenac Sodium 75 MG TABLET, DELAYED RELEASE One Bid Adverse Drug Reactions ReviewedMorphine Nausea And Vomting Vaccination and Immunization(X) 2022- INFLUENZA( ) 2017- PREVNAR 13 GC(X) 2018- PNEUMOVAX PREVNAR 20 Needed( ) 2020- COVID PFIZER(X) 2022-03 COVID BOOSTER PFIZER Surgical Ybmwbrq5670-04 Right Hammer Qpl6360-24 Left Bunion Qtpaqkk6649-13 Lap Luxhbkxvmyroaok9409-32 Rt. 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: AccountantFamily HistoryMother 38 years oldFather 68 years oldMother Hx: LeukemiaFather Hx: Cerebral Aneurysm TEST RESULT RANGE UNITSCBC (INCLUDES DIFF/PLT) Date: 04/20/2023WHITE BLOOD CELL COUNT 6.3 3.8-10.8 THOUSAND/ULHEMOGLOBIN 13.6 11.7-15.5 G/DLHEMATOCRIT 40.4 35.0-45.0 %PLATELET COUNT 281 140-400 THOUSAND/ULCOMPREHENSIVE METABOLIC PANEL, PLASMA Date: 04/20/2023SODIUM 141 135-146 MMOL/LPOTASSIUM 3.6 3.4-4.8 MMOL/LGLUCOSE 105 65-99 MG/DLUREA NITROGEN (BUN) 10 7-25 MG/DLCREATININE 0.75 0.60-1.00 MG/DLEGFR 86 > OR = 60 ML/MIN/1.16W2YAYQKBZK PHOSPHATASE 84 37-153 U/LAST 14 10-35 U/LALT 10 6-29 U/LLIPID PANEL, STANDARD Date: 3CHOLESTEROL, TOTAL 147 <200 MG/DLHDL CHOLESTEROL 51 > OR = 50 MG/DLTRIGLYCERIDES 109 <150 MG/DLLDL-CHOLESTEROL 77 MG/DL (CALC)T4, FREE Date: 04/20/2023T4, FREE 1.2 0.8-1.8 NG/DLTSH Date: 04/20/2023TSH 2.89 0.40-4.50 MIU/LVITAMIN D,25-OH,TOTAL,IA Date: 04/20/2023VITAMIN D,25-OH,TOTAL,IA 32 30-100 NG/ML Frederic Reyes MD [address] [facility] [address], [facility] [address], [place], [address], [place] [facility] 04/16/2024 10:42:38 OBGyn Episode No OBEpisode recorded.
--- OUTSIDE RECORDS SUMMARY | 2024-06-27 11:41 | XMS_ITS | Data Portability ---
Author Organization [facility] Address [address] [place] [address] Care Team Providers Care Seals Engraver Name Role Phone TOLU CHINCHILLA Primary Care Provider Assessment Encounter Date Assessment Date Assessment LastModified by Organization Details LastModified Time 09/19/2021 09/19/2021 Annual gynecological exam performed. Patient will come back in a year unless there are new symptoms. Not available 09/16/2021 10:24:13 Plan of Treatment Reminders Order Date Submit Date Provider Last Modified By Organization Details Last Modified Time Details Appointments None recorded. Lab None recorded. Referral None recorded. Procedures None recorded. Surgeries None recorded. Imaging MAMMO, diagnostic , digital, bilateral 2021 022 [facility], [address] [place], [address], 13:31:37 US, breast, unilateral , complete - left breast lump/tende rness 2021 022 [facility], [address] [place], [address], 13:32:56 Medication Orders None recorded. Patient TargetsNo targets recorded. Patient InstructionsNo instructions recorded. Reason for Referral None Reported. Results Created Date Observation Date Name Description Value Unit Range Abnormal Flag Note LastModifiedBy Organization Detail LastModifiedTime 10/20/19 22 10/19/2021 MAMMO , diagn ostic , digit al, bilat eral No observ ation record ed. [facility] [address] [place], [address], 10/26/2021 11:34:22 10/20/19 22 10/19/2021 US, breas t, unila teral , compl ete No observ ation record ed. [facility] [address] [place] [place], [address], 10/26/2021 11:34:23 10/27/19 22 10/19/2021 US, breas t, unila teral , compl ete No observ ation record ed. [facility] [address] [place], [address], 10/26/2021 14:22:48 Result Notes None recorded. Procedures Surgical History Date Name Laterality Status Provider Name and Address Organization Details Recorded Time 05/14/2018 Date of Last Pap Smear completed Ricarda Jackson [facility] 09/19/2021 10:40:47 Imaging Results Imaging Date Name Status LastModified by Organiz ation Details LastModified Time 10/19/2021 MAMMO, diagnostic, digital, bilateral completed [facility] [address] [place], [address], 10/26/2021 11:34:22 10/19/2021 US, breast, unilateral, complete completed [facility] [address] [place], [address], 10/26/2021 11:34:23 10/19/2021 US, breast, unilateral, complete completed [facility] [address] [place], [address], 10/26/2021 14:22:48 Procedure Notes None recorded. Medical Equipment None Reported. Allergies Allergen ID Allergen Name Allergen Category Reaction Reaction Severity Criticality Documentation Date Start Date Code Code System Note Provider Name and Address Organization Details Recorded Time 47636 morphine medicatio n Not available Not available Not available 04/30/2020 7052 RxNorm Comme nt: [facility]; Not Available [facility] 0 14:20:54 Medications Name Sig Start Date Stop Date Status Note LastModified by Organization Details LastModified Time atorvasta tin 10 mg tablet take 1 tablet by oral route every day active Prescrib ed Elsewher e: Yes Loca tion: Magdiel mai [facility] odify By: cmschult z Encoun ter DateTime : 08/24/19 17 08:30:00 AM Not Available Not Available Not Available sulfameth oxazole 800 mg-trimet hoprim 160 mg tablet take 1 tablet by oral route every 12 hours for 10 days 09/17 completed Prescrib ed Elsewher e: No Locat ion: Magdiel mai [facility] odify By: crissy calleuntzhen DateTime : 09/09/19 18 01:40:12 PM Not Available Not Available Not Available Vitamin D2 1,250 mcg (50,000 unit) capsule take 1 capsule (50711MC ITS) by oral route every week 07/10 completed Prescrib ed Elsewher e: No Locat ion: Magdiel mai [facility] odify By: lars Francisco r DateTime : 07/11/19 14 03:46:12 PM Not Available Not Available Not Available Calcio Coleen 500 mg tablet 07/10 completed Prescrib ed Elsewher e: Yes Loca tion: Magdiel mai [facility] odify By: lars Mejiate r DateTime : 06/13/19 12 10:00:00 AM Not Available Not Available Not Available Vitamin D3 10 mcg (400 unit) capsule active Prescrib ed Elsewher e: Yes [facility] By: damaris tz Encou nter DateTime : 06/10/19 12 01:35:55 PM Not Available Not Available Not Available Vitals Date Recorded Body height Body mass index (BMI) Body weight Systolic blood pressure Diastolic blood pressure Provider Name and Address Organization Details Last Updated DateTime 09/19/2021 167.64 cm 37.3 kg/m2 214523.5 6 g 134 mm[Hg] 84 mm[Hg] Ricarda Jackson [facility] 10:48:24 Social History Question Answer Notes LastModified by Organizat ion Details LastModified Time Tobacco Smoking Status Never Smoker Ricarda Jackson [facility] 09/19/2021 10:39:44 What Is Your Level Of Alcohol Consumption? None Information not available 09/19/2021 Are You Blind Or Do You Have Difficulty Seeing? No Information not available 09/19/2021 Are You Deaf Or Do You Have Serious Difficulty Hearing? No Information not available 09/19/2021 What Type Of Diet Are You Following? REGULAR Information not available 09/19/2021 Sex: Unknown Functional Status Question Answer Note LastModified by Organizat ion Details LastModified Time Do you have difficulty walking or climbing stairs? No Information not available 09/19/2021 Are you able to walk? YESWOREST Information not available 09/19/2021 Are you able to care for yourself? Yes Information not available 09/19/2021 Do you have difficulty dressing or bathing? No Information not available 09/19/2021 What is your exercise level? Moderate Information not available 09/19/2021 Mental Status None recorded. Family History Relationship Description Onset Age of this Age Resolved Age Notes LastModified by Organization Details LastModified Time Father Myocardial infarction Not available 09/19 10:38:45 Maternal Grandmother Disorder of thyroid gland Not available 2021 10:38:54 Mother Leukemia Not available 09/19/2021 10:39:03 Mother Disorder of thyroid gland Not available 2021 10:39:15 Medical History Condition Response Allergies (Food, seasonal, environmental ) N Other N Breast Cancer N Drug/Latex Allergies/Reactions N Blood Transfusion N Dermatologic Disorders N Lung Disease N Defects or Inherited Disease N Breast Problem N Gestational Diabetes N Hematologic disorders N Anesthesia Complications N History of STI N Deep Vein Thrombosis N Polycystic ovary syndrome N Anxiety Disorder N Autoimmune disease N Arthritis N Infertility N Polyps N Acid Reflux (GERD) N History of abnormal pap N Cancer N Stroke N Varicosities N Neurologic/Epilepsy N Endometriosis N High Cholesterol N Headaches N Fibromyalgia N Kidney Disease N Heart Problems N Kidney or Bladder Problems N Thyroid Problems N GI Problems N Eating Disorder N Anemia N Art (IVF or FET) N Psychiatric Illness N Ovarian Cancer N Diabetes N Pulmonary (TB, Asthma) N Hepatitis/Liver Disease N No Past Medical History N Eczema N Urinary Tract Infection N Abuse/Domestic Violence N Asthma N Trauma/Violence N Depression/ depression N Heart Disease N Pre-Eclampsia N Hypertension N Osteoporosis N Thrombophilias N Gynecological History Statement/Question Response If Post Menopausal, Age at Menopause 47 Sexually Active? Y STIs/STDs N Menses Monthly N Age of first menstrual cycle 10 HPV Vaccine N Date of Last Pap Smear 05/14/2018 Sexual Problems? N Current Control Method Hysterectom y LMP Unknown Obstetrics History GPAL:G 1 P 0 0 0 1 Type Value Living 1 Total 1 Past Encounters Encounter ID Performer Location Encounter Start Date Encounter Closed Date Diagnosis/Indication Diagnosis SNOMED-CT Code Diagnosis ICD10 Code Diagnosis Note [id number] NICOLÁS Clark [place] [address] [address] 09/19/2021 10:33:48 09/19/2021 11:18:08 Mass of left breast [id number] 9398057 N63.20 Gynecologi c examination 46631053 Z01.419 Take Calcium with Vitamin D 12-1500mg daily. Do monthly self breast exams. It is advised to get annual flu shot in the fall and she could obtain at [facility] or [facility] care clinic. If you haven't received the Tdap vaccine in the last 10 years you should obtain one as well. Have mammogram yearly, bone density every 2-3 years and colonoscop y every 5-10 years depending on findings and history. Engage in daily exercise of low impact aerobic exercise 45-60 minutes 4-5 times weekly. Avoid tobacco and illicit drugs as well as using moderation with alcohol intake less than 1-2 8 oz beverages daily. This lifestyle behavior pattern will lead to less health conditions and longer life span. If BMI greater than 25 weight watchers or dietary consult advised. Questions have been answered. Patient appears to understand instructio ns, but if you have any further questions call or respond to this email Hx of total hysterecto my. Patient states hysterecto my was due to non-cancer ous reasons, she was done having children.N o hx of abnormal pap smearsWe discussed paps no longer needed, over 65 and post hystDeclin ed STI testingNo vaginal issuesUTD on mammogram, left breast lump palpated in the upper outer quadrant with some tenderness on exam. Order for diagnostic mammogram and left breast ultrasound given to patient.No family hx of breast or ovarian cancerUTD on colonscopy Dexa last year, following with PCP for Dexa managmentR TC in 1-2 years for WWE or sooner if needed Health Concerns Section Related Observation LastModified by Organization Detai ls LastModified Time None Recorded Concern Status LastModified by Organization Details LastModified Time None Recorded Advance Directives Directive None Recorded Payers Encounter Date Sequence Insurance Name Policy Number Policy Santiago Covered Member ID Santiago Member ID Guarantor Name 09/19/2021 1 [employer] (MEDICARE REPLACEMENT PPO) [id number] 1 Cornelia Estes [id number] Cornelia Estes Notes Date Note Type Note Provider Name and Address Organization Details Recorded Time 09/19/2021 text/html 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 Post-MenopausalRe ported bypatient.Menopau dinora Symptoms:no menopausal symptoms; normal vaginal lubrication Vaginal Bleeding:history of menopause having occurred; no history of post menopausal bleeding Urinary Symptoms:no hematuria; no incontinence; no nocturia; no urinary frequency Vulva:no genital lesion; no vulvar atrophy Vagina:normal vaginal discharge; no vaginal atrophy Breast:no breast lump; no nipple discharge; no breast pain Sexual Complaints:no sexual complaints Psychological Symptoms:no depression; no anxiety Preventive Measures:encourag e regular mammograms starting age 40; encourage self breast examination; encourage regular exercise; encourage no tobacco use; mammogram performed within the past year; history of recent colonoscopy NICOLÁS Clark [address], [place], [address], [facility] 09/19/2021 11:16:14 OBGyn Episode Ob Episode Information Episode Created Date Number of Fetuses Patient Bloodtype Patient rh Status Prepregnancy Weight lbs Domestic Partner Domestic Partner Phone Father Name Caustic Liquor Maker Status 09/20/19 22 1 CLOSED Fetus Data First Name Last Name Admitted to NICU Weight (g) Sex Living Outcome Pediatric Complications Fetus ID Race Codes Race Delivery Type 5046.21 1 F Full Term [id number] Vaginal Delivery Bill Calculation Initial Bill Date Initial Exam Date Initial Exam Provider Initial Ultrasound Date Last Menstrual Period Date Ultra Sound Weeks Gestation 0 Eighteen To Twenty Week Bill Update Ultra Sound Date Fundal Height At Umbil Quickening Date Ultra Sound Latest Weeks Gestation Final Bill Confirmed By Final Bill Confirmed Date Final Bill Date Ultra Sound Latest Days Gestation 0 0 Menstrual History Last Menstrual Date Menses Monthly On Bcp Conception Prior Menses Frequency Hcg Plus Date Menarche Onset Age Delivery Information Delivery Date Delivery Type Labor Anesthesia Weeks Gestation Incision Type Labor Labor Length Hrs Delivered By Post Complications Tubal Sterilization Discharge Date Comments 1 Discharge Information Feeding Method Contraceptive Method Maternal HG B and HCT Levels
--- NOTE | 2024-06-27 12:49 | ECG_ITS ---
Test Date: 2024-06-27 13:09:29 Measurements Intervals [place] Rate: 71 P: 31 IN: 145 QRS: 15 QRSD: 90 T: 22 QT: 395 QTc: 430 Interpretive Statements SINUS RHYTHM LOW QRS VOLTAGE IN PRECORDIAL LEADS BASELINE ARTIFACT- I, II, III, AVR, AVL, AVF, V1-V6 BORDERLINE ECG No previous ECG available for comparison Electronically Signed On 06-27-2024 13:47:23 FINAL ASSEMBLY AND PACKING SUPERVISOR by Julián Laguna D.O.
[2024-06-27 13:19] LABS: Basophils Absolute Auto 0.1 K/mm3 (0.0-0.1); Basophils Percent Auto 0.9 % (0.2-1.2); Eosinophils Absolute Auto 0.3 K/mm3 (0-0.3); Eosinophils Percent Auto 4.1 % (0-4.4); Hematocrit 38.4 % (37.0-47.0); Hemoglobin 13.3 g/dL (12.0-15.0); Immature Granulocyte Absolute 0.03 K/mm3 (0.00-0.031); Immature Granulocyte Percent A 0.4 % (0-0.5); Lymphocytes Absolute Auto 1.56 K/mm3 (0.9-3.2); Lymphocytes Percent Auto 20.4 % (18.3-44.2); Mean Corpuscular HGB Conc 34.6 g/dl (32-36); Mean Corpuscular Hemoglobin 33.8 pg (26-34); Mean Corpuscular Volume 97.7 fl (80-100); Mean Platelet Volume 9.5 fl (7.4-10.4); Monocytes Absolute Auto 0.6 K/mm3 (0.1-0.6); Monocytes Percent Auto 8.2 % (2.6-8.5); Platelet Count Result 257 k/mm3 (150-375); Red Blood Count 3.93 M/mm3 (4.2-5.4); Red Cell Distribution Width 12.5 % (11.5-14.5); White Blood Count 7.6 K/mm3 (4.5-10.0)
[2024-06-27 13:28] LABS: Hemoglobin A1C 5.2 % (<5.7)
[2024-06-27 13:29] LABS: Urine Cotinine NEGATIVE
[2024-06-27 13:31] LABS: Albumin Level 4.4 g/dL (3.5-5.1); Anion Gap 7 mmol/L (4-12); Blood Urea Nitrogen 17 mg/dL (7-17); Calcium 9.2 mg/dL (8.4-10.2); Carbon Dioxide 28 mmol/L (22-30); Chloride 94 mmol/L (98-107); Estimated Glomerular Filt Rate > 60; Glucose 94 mg/dL (65-110); Potassium 4.7 mmol/L (3.4-5.0); Sodium 129 mmol/L (137-145)
== END 2024-06-27 11:31 | disposition home or self-care (01) ==
PROVIDERS: PCP Internal Medicine; Visit Provider Orthopaedic Surgery
DX: Z01.818 Encounter for other preprocedural examination (principal); M16.12 Unilateral primary osteoarthritis, left hip
CPT/HCPCS: 80048; 80307; 82040; 83036; 85025; 87081; 93005

== ENCOUNTER 2024-07-09 09:54 | Outpatient (CLI) | payer MEDICARE, SELFPAY ==
[2024-07-09 10:25] LABS: Anion Gap 10 mmol/L (4-12); Blood Urea Nitrogen 13 mg/dL (7-17); Calcium 9.2 mg/dL (8.4-10.2); Carbon Dioxide 26 mmol/L (22-30); Chloride 96 mmol/L (98-107); Estimated Glomerular Filt Rate > 60; Glucose 92 mg/dL (65-110); Potassium 4.2 mmol/L (3.4-5.0); Sodium 132 mmol/L (137-145)
--- OUTSIDE RECORDS SUMMARY | 2024-07-09 11:16 | XMS_ITS | Continuity of Care Document ---
Author Organization [facility] Address [address] [place] [address] Phone Care Team Providers Care Sql Ssis Developer Name Role Phone Kaleb Zavala DO Unavailable Unavailable Advance Directives Directive Yes / No Effective Date File Name No Information Encounters Encounter Description Practice Location Reason(s) For Visit Diagnoses Date Provider Providers Copied on Encounter [facility], [address], [place], [place], [id number], tel:[phone] [facility] No Information Lucas Muhammad. [address] [place], [address], . tel: [phone] Family History Family Member Type Diagnosis Age [...]
--- OUTSIDE RECORDS SUMMARY | 2024-07-09 11:17 | XMS_ITS | CONTINUITY OF CARE DOCUMENT ---
Author Name holly barrera Address Unknown Organization [facility] Address [address] [place] [address] Phone [phone] Care Team Providers Care Spike Driver Name Role Phone Jose Antonio Bhatt MD Unavailable [phone] Jose Antonio Bhatt MD Unavailable [phone] INSURANCE PROVIDERS Payer name Policy type / Coverage type Louis red libertarian ID AETNA MEDICARE [place] PPO Medicare [id number]
--- OUTSIDE RECORDS SUMMARY | 2024-07-09 11:17 | XMS_ITS | Data Portability ---
Author Organization [facility] Address [address] [place] [address] Care Team Providers Care Cleaner And Presser Name Role Phone TOLU CHINCHILLA Primary Care Provider [phone] Assessment Encounter Date Assessment Date Assessment LastModified [...] MAMMO, diagnostic , digital, bilateral 2021 022 [facility], [address] [place], [address], 13:31:37 US, breast, unilateral , complete - left breast lump/tende rness 2021 022 [facility], [address] [place], [address], 13:32:56 Medication Orders None recorded. Patient TargetsNo targets recorded. Patient InstructionsNo instructions recorded. Reason for Referral None Reported. Results Created Date Observation Date Name Description Value Unit Range Abnormal Flag Note LastModifiedBy Organization Detail LastModifiedTime 10/20/19 22 10/19/2021 MAMMO , diagn ostic , digit al, bilat eral No observ ation record ed. [facility] [address] [place], [address], 10/26/2021 11:34:22 10/20/19 22 10/19/2021 US, breas t, unila teral , compl ete No observ ation record ed. [facility] [address] [facility] [facility] [place] [place], [address], 10/26/2021 11:34:23 10/27/19 22 10/19/2021 US, breas t, unila teral , compl ete No observ ation record ed. [facility] [address] [place], [address], 10/26/2021 14:22:48 Result Notes None recorded. Procedures Surgical History Date Name Laterality Status Provider Name and Address Organization Details Recorded Time 05/14/2018 Date of Last Pap Smear completed Ricarda Jackson [facility] 09/19/2021 10:40:47 Imaging Results Imaging Date Name Status LastModified by Organiz ation Details LastModified Time 10/19/2021 MAMMO, diagnostic, digital, bilateral completed [facility] [address] [place], [address], 10/26/2021 11:34:22 10/19/2021 US, breast, unilateral, complete completed [facility] [address] [place], [address], 10/26/2021 11:34:23 10/19/2021 US, breast, unilateral, complete completed [facility] [address] [place], [address], 10/26/2021 14:22:48 Procedure Notes None recorded. Medical Equipment None Reported. Allergies Allergen ID Allergen Name Allergen Category Reaction Reaction Severity Criticality Documentation Date Start Date Code Code System Note Provider Name and Address Organization Details Recorded Time 71428 morphine medicatio n Not available Not available Not available 04/30/2020 7052 RxNorm Comme nt: [facility]; [facility] Available [facility] 0 14:20:54 Medications Name Sig Start Date Stop Date Status Note LastModified by Organization Details LastModified Time atorvasta tin 10 mg tablet take 1 tablet by oral route every day active Prescrib ed Elsewher e: Yes Loca tion: Magdiel mai [facility] odify By: cmschult z Encoun ter DateTime : 08/24/19 17 08:30:00 AM Not Available Not Available Not Available sulfameth oxazole 800 mg-trimet hoprim 160 mg tablet take 1 tablet by oral route every 12 hours for 10 days 09/17 completed Prescrib ed Elsewher e: No Locat ion: Magdiel mai [facility] odify By: crissy calleuntzhen DateTime : 09/09/19 18 01:40:12 PM Not Available Not Available Not Available Vitamin D2 1,250 mcg (50,000 unit) capsule take 1 capsule (77744SS ITS) by oral route every week 07/10 completed Prescrib ed Elsewher e: No Locat ion: Magdiel mai [facility] odify By: lars Francisco r DateTime : 07/11/19 14 03:46:12 PM Not Available Not Available Not Available Calcio Coleen 500 mg tablet 07/10 completed Prescrib ed Elsewher e: Yes Loca tion: Magdiel mai [facility] odify By: lars Mejiate r DateTime : 06/13/19 12 10:00:00 AM Not Available Not Available Not Available Vitamin D3 10 mcg (400 unit) capsule active Prescrib ed Elsewher e: Yes [facility] By: damaris tz Encou nter DateTime : 06/10/19 12 01:35:55 PM Not Available Not Available Not Available Vitals Date Recorded Body height Body mass index (BMI) Body weight Systolic blood pressure Diastolic blood pressure Provider Name and Address Organization Details Last Updated DateTime 09/19/2021 167.64 cm 37.3 kg/m2 407354.5 6 g 134 mm[Hg] 84 mm[Hg] Ricarda Jackson [facility] 10:48:24 Social History Question Answer Notes LastModified by Organizat ion Details LastModified Time Tobacco Smoking Status Never Smoker Ricarda Jackson [facility] 09/19/2021 10:39:44 What Is Your Level [...] SNOMED-CT Code Diagnosis ICD10 Code Diagnosis Note [id number] NICOLÁS Clark [place] [address] [address] 09/19/2021 10:33:48 09/19/2021 11:18:08 Mass of left breast [id number] 1532352 N63.20 Gynecologi c examination 28452287 Z01.419 Take Calcium with Vitamin D 12-1500mg daily. Do monthly self breast exams. It is advised to get annual flu shot in the fall and she could obtain at [facility] or [facility] care clinic. 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 09/19/2021 11:16:14 OBGyn Episode Ob Episode Information Episode Created Date Number of Fetuses Patient Bloodtype Patient rh Status Prepregnancy Weight lbs Domestic Partner Domestic Partner Phone Father Name Wildlife Biologist Status 09/20/19 22 1 CLOSED Fetus Data First Name Last Name Admitted to NICU Weight (g) Sex Living Outcome Pediatric Complications Fetus ID Race Codes Race Delivery Type 5046.21 1 F Full Term [id number] Vaginal Delivery Bill Calculation Initial Bill Date [...]
== END 2024-07-09 09:55 | disposition home or self-care (01) ==
PROVIDERS: PCP Internal Medicine; Visit Provider Internal Medicine
DX: R87.1 Abnormal level of hormones in specimens from female genital organs (principal)
CPT/HCPCS: 36415; 80048

== ENCOUNTER 2024-07-14 00:31 | Day surgery (SDC) | payer MEDICARE, SELFPAY ==
[2024-06-27 12:12] VITALS: BP 152/79; PULSE 78; RESP 16; TEMP 36.6; O2SAT 100; BMI 35.3
--- NOTE | 2024-06-27 12:26 | PC.NURSE ---
Report to the Outpatient Waiting Room, entrance under the green pavilion located off [facility], at time ___6:00AM____ on date ___07/14/24____. Planned Procedure Time: ____7:30AM____.? Time changes happen often and if your time is changed the preop area will call you the afternoon before. - You and your visitor will be asked to self-screen and do not enter if you have any COVID symptoms. Please call surgeon if you need to reschedule. - A mask is optional within the hospital at this time. Patients may have clear liquids (water, carbonated beverages, clear teas, apple juice) until 3 hours prior to surgery (4:30AM) with a maximum of 20 ounces. - No food from midnight until time of surgery and no smoking, or chewing tobacco (or any form of nicotine). No chewing gum, candy or mints. Take only the following medications with a SIP of water on the morning of surgery: NONE DO NOT STOP ANY OF YOUR OTHER PRESCRIPTION MEDICATIONS PRIOR TO SURGERY EXCEPT THE FOLLOWING Hold all vitamins and supplements for 3 days per anesthesiologist.-LAST DOSE 07/10/24 Medications to discontinue per physician HOLD ALL NSAIDS(DICLOFENAC) FOR 7 DAYS PRE-OP PER DR TIJERINA Date to take last dose 07/06/24 Please no make-up, nail canadian, hairspray, perfume, deodorant, or body powder the day of surgery.? No jewelry (including any body piercings) or valuables the day of surgery, leave them at home.? Please take a shower or bath the night before, or the morning of, surgery with an antibacterial soap.? Wear comfortable, loose fitting clothing.? - Jewelry must be removed prior to entering the operating room.? Rings and piercings that are not removed may be cut off. - The hospital will not accept responsibility for valuables.? - Please leave all valuables, including medications, at home the day of surgery. If you are going home after surgery, a licensed clark driver must drive you home.? - NO public transportation without another adult if you receive anesthesia. - We recommend that an adult stay with you for 24 hours following discharge. - We also recommend that you do not drive, make important decision, drink alcoholic beverages, or take any drugs that were not prescribed by your health care provider for at least 24 hours after your discharge time. Follow any additional instructions given to you from your surgeon. Telephone instructions given to ____PATIENT & DAUGHTER and asked if any additional questions and then verbalized understanding. Patient advised to call surgeon office or pre surgery nurse liaison [phone] if any additional questions.
--- NOTE | 2024-07-11 07:45 | PM.IMHP ---
H&P: HPI History of Present Illness Date/Time: 07/11/24 07:45 Chief Complaint: Left hip DJD and right knee DJD Narrative: 73-year-old female who presents today for a left anterior total hip arthroplasty with cortisone injection into the right knee. Patient has severe type 1 osteoarthritis in the left hip. She has been dealing with pain from this for well over 6 months. She has been taking diclofenac 75 mg b.i.d.. At this point pain is rather severe on a daily basis. Patient feels this point she is ready proceed with total hip arthroplasty. Patient also has [id number]-[id number] medial compartment osteoarthritis in the right knee. She has had cortisone injections in the past which seemed to help he would like to have an injection at the time surgery. This will be done while she is under anesthesia. Review of Systems Review of Systems: All systems reviewed & are unremarkable except as noted in HPI and below PMFSH Past Medical History Medical History High cholesterol Surgical History Surgical History History of foot surgery 06/05 left foot, 04/05 right foot Family History Family History Other Acute myocardial infarction Social History Social History (Updated 06/06/24 @ 07:48 by Meg Clark CMA) Smoking status: Never smoker Second hand tobacco smoke exposure: Yes Alcohol intake: never Substance use: never Substance use type: does not use Do You Feel Safe in your Home?: Yes Lack of Transportation: No Lack of Food: Never True Current Housing: I Have Housing Concerned About Future Housing: No Difficulty Paying Gas/Electric Bills: No Difficulty Paying for Meds: No Currently Unemployed: No Education: Associate Degree Difficulty w/ Childcare or Family Care: No Living arrangements: with family Additional living arrangements comments: [facility]SE Occupation/Education: retired 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 Gender identity (if verbalized by the patient): Female Spiritual care concerns: No Meds Home Medications and Allergies Home Medications ?Medication ?Instructions ?Recorded ?Confirmed ?Type atorvastatin 40 mg tablet 40 mg PO DAILY 10/11/23 06/27/24 History diclofenac sodium 75 mg 75 mg PO BID #60 tabs 11/13/23 06/27/24 Rx tablet,delayed release peg 3350-electrolytes 236 240 ml PO Q10M #4,000 mL 04/22/24 06/27/24 Rx gram-22.74 gram-6.74 gram-5.86 gram solution (Golytely) acetaminophen 500 mg tablet 1,000 mg PO BID PRN pain 06/27/24 06/27/24 History (Acetaminophen Extra Strength) cholecalciferol (vitamin D3) 25 1,000 unit PO DAILY 06/27/24 06/27/24 History mcg (1,000 unit) capsule docusate sodium 100 mg capsule 100 mg PO DAILY 06/27/24 06/27/24 History (Colace) celecoxib 200 mg capsule (Celebrex) 200 mg PO DAILY #7 caps 07/07/24 Rx Allergies Allergy/AdvReac Type Severity Reaction Status Date / Time opiates Allergy Severe increases Uncoded 06/27/24 12:07 pain, nausea & vomiting Exam Narrative: 73-year-old female alert pleasant. She is 5 ft 6 and 215 lb BMI is 34.7. She walks with a ruoq-fw-yzbxtosz limp. She complains of pain in the groin with weight-bearing on the left leg. Left hip flexes to 95?. This causes her severe groin. External rotation to 20 internal rotation 0 both cause groin pain. Positive Stinchfield maneuver. Tckz-mk-tfwcahkx tenderness over the greater trochanter to palpation. She has no edema in either lower extremity. 2+ dorsalis pedis pulse and her foot. Sensation to the left lower extremity. Resp: Auscultation: clear to auscultation bilaterally Cardio: Rate: regular rate Rhythm: regular rhythm Assessment and Plan Assessment and plan (1) Patellofemoral arthritis of right knee: Code(s): M17.11 - Unilateral primary osteoarthritis, right knee Status: Acute (2) Osteoarthritis of left hip: Qualifiers: Osteoarthritis type: primary Qualified Code(s): M16.12 - Unilateral primary osteoarthritis, left hip Code(s): M16.12 - Unilateral primary osteoarthritis, left hip Status: Acute Plan 73-year-old female who has severe osteoarthritis left hip with significant symptoms on a daily basis. This is affecting her daily lifestyle. She feels this point she is ready proceed with total hip arthroplasty. Surgical procedures well as the risks and complications were discussed in detail all questions were answered and we will proceed. Patient will stop her diclofenac 1 week prior to surgery. She will also avoid any other aspirin ibuprofen products 1 week prior to surgery. She will see her primary care doctor for pre-surgical clearance. Patient's nasal swab was negative. Hemoglobin 13.3 and platelets are 257. Creatinine is 0.62. Patient has severe difficulty taking narcotics we will plan use tramadol with Zofran postoperatively for pain control. We also plan to give cortisone injection into the right knee at the time surgery as well.
[2024-07-14] VITALS (11 sets, daily range): BP systolic 104–148; BP diastolic 54–82; PULSE 66–84; RESP 10–18; TEMP 35.7–37.1; O2SAT 97–100
--- NOTE | 2024-07-14 06:44 | WPDANESEPPF ---
Anes - Initial Pre Proc Eval Procedure: Operation Date: 07/14/24 07:30 Proposed Procedures p Left Total Hip Arthroplasty, Direct Anterior Approach, Cortisone Injection Right Knee - Bravo Morales MD Date/Time: 07/14/24 06:44 Surgeon: Bravo Morales MD Pre Op Diagnosis: OA left hip, OA right knee Patient Data Age: 73 Gender: F Height: 1.66 m Weight: 97.8 kg Last Vital Signs Temp 36.6 C 06/27/24 12:12 Pulse 78 06/27/24 12:12 Resp 16 06/27/24 12:12 BP 152/79 H 06/27/24 12:12 Pulse Ox 100 06/27/24 12:12 O2 Del Method Room Air 06/27/24 12:12 Allergies Allergy/AdvReac Type Severity Reaction Status Date / Time opiates Allergy Severe increases Uncoded 06/27/24 12:07 pain, nausea & vomiting Home Medications ?Medication ?Instructions ?Recorded ?Confirmed ?Type atorvastatin 40 mg tablet 40 mg PO DAILY 10/11/23 06/27/24 History diclofenac sodium 75 mg 75 mg PO BID #60 tabs 11/13/23 06/27/24 Rx tablet,delayed release peg 3350-electrolytes 236 240 ml PO Q10M #4,000 mL 04/22/24 06/27/24 Rx gram-22.74 gram-6.74 gram-5.86 gram solution (Golytely) acetaminophen 500 mg tablet 1,000 mg PO BID PRN pain 06/27/24 06/27/24 History (Acetaminophen Extra Strength) cholecalciferol (vitamin D3) 25 1,000 unit PO DAILY 06/27/24 06/27/24 History mcg (1,000 unit) capsule docusate sodium 100 mg capsule 100 mg PO DAILY 06/27/24 06/27/24 History (Colace) celecoxib 200 mg capsule (Celebrex) 200 mg PO DAILY #7 caps 07/07/24 Rx Patient hx anesthesia problems: none Family hx anesthesia problems: none Results Review: All pre-operative results and documents have been reviewed as part of the pre-operative evaluation. [facility] Past Medical History Medical History (Updated 07/14/24 @ 06:45 by Osbaldo Steven MD) Obesity High cholesterol Surgical History Surgical History History of foot surgery 06/05 left foot, 04/05 right foot Family History Family History Other Acute myocardial infarction Social History Social History Smoking status: Never smoker Second hand tobacco smoke exposure: Yes Alcohol intake: never Substance use: never Substance use type: does not use Do You Feel Safe in your Home?: Yes Lack of Transportation: No Lack of Food: Never True Current Housing: I Have Housing Concerned About Future Housing: No Difficulty Paying Gas/Electric Bills: No Difficulty Paying for Meds: No Currently Unemployed: No Education: Associate Degree Difficulty w/ Childcare or Family Care: No Living arrangements: with family Additional living arrangements comments: [facility] Occupation/Education: retired 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 Informed Consent: The patient's anesthetic plan and its attendant risks and benefits were discussed with the patient/family/POA. Questions were solicited and answers provided to the satisfaction of the patient/family/POA.
[2024-07-14] MEDS: LACTATED RINGERS 1,000 ML 30 ML IV CONT ×2 (07:00→10:59)
[2024-07-14] MEDS: VANCOMYCIN 1,500 MG/NS 500 ML BAG 250 MG IVPB (07:00)
[2024-07-14] MEDS: TRANEXAMIC ACID 1,000MG/ISO100 1,000 MG/100 ML BAG 200 MG IVPB (07:00)
[2024-07-14] MEDS: ACETAMINOPHEN 500 MG TABLET 1000 MG PO (07:00)
--- NOTE | 2024-07-14 07:18 | WPDHPUPDATE1 ---
History and Physical Update Update Date/Time: 07/14/24 07:18 History and Physical has been reviewed, including an updated exam of the patient. There are NO changes in the patient's condition. Risks, benefits, and alternatives have been discussed and questions answered. Patient agrees to proceed with procedure.
[2024-07-14] MEDS: ceFAZolin 2 GM/D5W 50 ML 2 GM/50 ML BAG IVPB ×2 (07:34→17:26)
[2024-07-14] MEDS: LIDOCAINE 1% LOCAL INJ 10 ML VIAL 4 ML INFILTRATE (08:10)
[2024-07-14] MEDS: methylPREDNISolone ACETATE 80 MG/ML VIAL IM (08:10)
[2024-07-14] MEDS: SODIUM CHLORIDE 0.9% IV 37.7 ML, MORPHINE SULFATE INJ (*CRX) 2 MG, ROPivacaine HCL 1% 2... INFILTRATE (08:38)
[2024-07-14] MEDS: ceFAZolin SODIUM 1 GM VIAL 3 GM (08:39)
[2024-07-14] MEDS: TRANEXAMIC ACID 1,000 MG/10 ML AMPUL 1000 MG IV PUSH (10:24)
[2024-07-14] MEDS: ceFAZolin SODIUM 1 GM VIAL 2 GM IV PUSH (10:24)
[2024-07-14] MEDS: KETOROLAC 15 MG/ML VIAL (*BKC) IV PUSH ×3 (10:28→17:26)
--- NOTE | 2024-07-14 11:03 | W.PM.PROC2 ---
Procedure Note - Detailed Date of Procedure 07/14/24 Pre-op Diagnosis OA left hip, OA right knee Post-op Diagnosis Same Procedure Performed 1. Cortisone injection right knee 2. Left total hip arthroplasty direct anterior approach Surgeon Bravo Morales MD Corrugator Supervisor Josh Anesthesia General Description of Procedure Patient was brought to the operating room and general anesthesia was administered. She received 2 g Ancef weight based vancomycin 1 g TXA preoperatively. The right knee was prepped with ChloraPrep and 80 mg Depo-Medrol 4 cc 1% lidocaine were injected into the right knee without difficulty. Soft roll applied the feet boots applied patient transferred to the OSI [place] table SCDs applied the calves and running during the procedure the right hip prepped draped usual fashion. A 10 cm longitudinal incision was made starting 3 cm lateral to the ASIS. Dissection was carried down through the subcutaneous fat to the fascia over the tensor fascia carmen which was exposed and longitudinally incised over the midportion of the TFL. Anterior fascia was elevated off the anterior 50% of the TFL muscle. Interval between TFL and rectus femoris developed and crossing branches of ascending lateral femoral circumflex vessels were isolated and ligated with suture divided. A retractor was placed anterior medial to the capsule the hip abducted internally rotated the gluteus minimus elevated off the lateral capsule. Inverted T capsulotomy was performed. Femoral neck osteotomy made according to preoperative templating. Femoral head was removed. It measured 46 mm in diameter. It was severely worn. Acetabulum was exposed labrum excised. Femur was externally rotated and extended and the release of lateral capsule from the greater trochanter completed and the interval between conjoined tendon and piriformis incised which allowed the conjoined tendon to recess. With the leg back in the horizontal position external rotation and traction the acetabulum was exposed and prepared. Under fluoroscopic guidance, acetabular fossa was medialized to the medial wall with a 42 Reamer. We reamed up to 48 mm which gave circumferential reaming at the rim and the 48 mm emphasis cup was chosen impacted at 40? of abduction and appropriate anteversion and this was fully seated with excellent Press-Fit. A single screw was placed in the ilium for additional fixation and the 36 inner diameter liner placed without difficulty. The femur was extended and elevated with the table hook in the femur was broached to a size 6 which had torsional stability. We trialed with the 1.5 initially which was deemed to be too lose. The 5 mm head on the standard offset neck gave appropriate stability and leg lengths were noted to be equal on fluoroscopic assessment. We confirmed complete torsional stability of the 6 broach. We planed the calcar the small calcar planer and placed the size 6 Actis stem standard offset which was impacted and seated fully without difficulty. No cracks noted. The 5 was the appropriate choice on trialing and we placed the size 5 mm x 36 mm ceramic head after thorough irrigation of wound and drying of the trunnion. Hip reduced stability reconfirmed final fluoroscopic x-ray was obtained. Superior limb of the capsulotomy reapproximated with 2. Vicryl so. Local anesthetic cocktail was injected in the periarticular soft tissues. Fascia was closed with 1. Vicryl drain deep in the subcu layer skin closed with 2 subcutaneous Vicryl and glue. EBL was estimated as 200 cc by Cell Saver. We will around this to 250 for estimated blood loss. Not enough blood was lost to obtain any Cell Saver blood to retransfuse. Additional 2 g of Ancef and 1 g TXA given time wound closure. There were no complications. She was transferred to postop recovery room stable condition. ARASH Billing Surgery - Charge Forward: Surgery Billing (Cortisone injection right knee, left total hip arthroplasty)
--- NOTE | 2024-07-14 11:07 | PM.OP ---
Procedure Note - Brief Procedure Note - Brief Date of procedure: 07/14/24 OA left hip, OA right knee Procedure performed: Left anterior total hip arthroplasty Surgeon: TONY Roca Findings: 73-year-old female underwent left total hip arthroplasty anterior approach on 07/14. I was involved in the procedure including positioning the patient on the OR table in 1st assisting through the time surgery. Total time spent was 3-1/2 hours
[2024-07-14] MEDS: fentaNYL CITRATE INJ (*CRX) 100 MCG/2 ML VIAL 25 MCG IV PUSH ×6 (11:19→12:06)
[2024-07-14] MEDS: traMADol HCL (*CRX) 50 MG TABLET PO (13:10)
[2024-07-14] MEDS: SODIUM CHLORIDE 0.9% IV 1,000 ML 125 ML IV CONT (13:11)
[2024-07-14] MEDS: ACETAMINOPHEN 325 MG TABLET 650 MG PO ×3 (13:11→20:59)
[2024-07-14] MEDS: ONDANSETRON INJ 4 MG/2 ML VIAL IV PUSH (13:14)
--- NOTE | 2024-07-14 15:10 | PM.IMCN ---
Assessment and Plan Assessment and plan (1) S/P total left hip arthroplasty: Code(s): Z96.642 - Presence of left artificial hip joint Status: Acute Assessment and Plan: postop day 0 from left total hip arthroplasty performed by Dr. Morales continue pain and nausea control continue incentive spirometry while awake continue hip precautions PT and OT ordered full weight-bearing status continue Eliquis 2.5 mg p.o. b.i.d. per Orthopedic surgery recommendation advance as tolerated to regular diet continue IV fluids and Kat catheter for now antibiotics per surgical team maintain Hemovac drain (2) Osteoarthritis of left hip: Qualifiers: Osteoarthritis type: primary Qualified Code(s): M16.12 - Unilateral primary osteoarthritis, left hip Code(s): M16.12 - Unilateral primary osteoarthritis, left hip Status: Acute Assessment and Plan: see above plan of care (3) Patellofemoral arthritis of right knee: Code(s): M17.11 - Unilateral primary osteoarthritis, right knee Status: Acute Assessment and Plan: cortisone injection given while in the OR PT and OT ordered (4) High cholesterol: Code(s): E78.00 - Pure hypercholesterolemia, unspecified Status: Acute Assessment and Plan: continue atorvastatin HPI Date of Consult Consult date: 07/14/24 Requesting Physician: Bravo Morales MD Primary Care Provider: Frederic Reyes, Consult Narrative Narrative: Cornelia Estes is a 73 year old female with a significant past medical history of obesity, hyperlipidemia who presented for elective left total hip arthroplasty and right knee cortisone injection with Dr. Morales. Estimated blood loss during surgery was 200 mL. We were consulted for medical management while inpatient. Review of Systems Review of Systems: All systems reviewed & are unremarkable except as noted in HPI and below PMFSH Past Medical History Medical History Obesity High cholesterol Surgical History Surgical History S/P total left hip arthroplasty History of foot surgery 06/05 left foot, 04/05 right foot Family History Family History Other Acute myocardial infarction Social History Social History Smoking status: Never smoker Second hand tobacco smoke exposure: Yes Alcohol intake: never Substance use: never Substance use type: does not use Do You Feel Safe in your Home?: Yes Lack of Transportation: No Lack of Food: Never True Current Housing: I Have Housing Concerned About Future Housing: No Difficulty Paying Gas/Electric Bills: No Difficulty Paying for Meds: No Currently Unemployed: No Education: Associate Degree Difficulty w/ Childcare or Family Care: No Living arrangements: with family Additional living arrangements comments: [facility]SE Occupation/Education: retired 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 [employer] Gender identity (if verbalized by the patient): Female Spiritual care concerns: No Meds Home Medications and Allergies Home Medications ?Medication ?Instructions ?Recorded ?Confirmed ?Type atorvastatin 40 mg tablet 40 mg PO DAILY 10/11/23 07/14/24 History diclofenac sodium 75 mg 75 mg PO BID #60 tabs 11/13/23 07/14/24 Rx tablet,delayed release acetaminophen 500 mg tablet 1,000 mg PO BID PRN pain 06/27/24 06/27/24 History (Acetaminophen Extra Strength) cholecalciferol (vitamin D3) 25 1,000 unit PO DAILY 06/27/24 07/14/24 History mcg (1,000 unit) capsule Allergies Allergy/AdvReac Type Severity Reaction Status Date / Time opiates Allergy Severe increases Uncoded 07/14/24 07:58 pain, nausea & vomiting Vital Signs Vital Signs - 24 hr 07/14/24 07:00 07/14/24 10:59 07/14/24 11:10 Temperature 96.7 F L 98.7 F Pulse Rate 75 71 71 Respiratory Rate 14 10 L 11 L Blood Pressure 138/68 104/59 L 124/70 Pulse Oximetry 99 100 100 Oxygen Delivery Room Air Simple Face Mask Simple Face Mask Oxygen Flow Rate 10 10 07/14/24 11:25 07/14/24 11:40 07/14/24 11:55 Temperature Pulse Rate 70 76 82 Respiratory Rate 10 L 13 10 L Blood Pressure 148/81 H 146/82 H 130/58 L Pulse Oximetry 100 100 100 Oxygen Delivery Simple Face Mask Nasal Cannula Nasal Cannula Oxygen Flow Rate 10 2 2 07/14/24 12:10 07/14/24 12:36 07/14/24 13:06 Temperature 96.2 F L 97 F L Pulse Rate 78 71 66 Respiratory Rate 11 L 11 L 12 Blood Pressure 145/81 H 140/71 144/77 H Pulse Oximetry 100 98 100 Oxygen Delivery Nasal Cannula Oxygen Flow Rate 2 07/14/24 14:21 07/14/24 14:39 Temperature Pulse Rate Respiratory Rate Blood Pressure Pulse Oximetry Oxygen Delivery Room Air Room Air Oxygen Flow Rate Exam Narrative: General: In no acute distress, well nourished Head: atraumatic, no encephalopathy Eyes: PERRLA, sclera clear ENT: moist mucous membranes, nasal passages clear Neck: supple, no JVD, no adenopathy, trachea midline Cardiac: Normal S1 and S2. No murmur, gallops or friction rubs, peripheral pulses intact. Respiratory: Lungs clear to auscultation, no adventitious lung sounds, currently on room air Gastrointestinal: soft, non-distended, non-tender, normoactive bowel sounds. : voiding without difficulty. Extremities: moves all extremities well, no edema Skin:Left hip OR incision C/D/I, hemovac drain in place draining bloody drainage Neuro: Alert and oriented x4, cranial nerves intact, no neuro deficits. Psych: normal mood, normal affect, interactive Results Imaging Radiologist's impression: EXAMINATION: XR hip LT 1V w AP pelvis DATE: 07/14/2024 10:59 INDICATION: Total left hip arthroplasty. Postop. TECHNIQUE: An anteroposterior view of the pelvis and single view of left hip were obtained. COMPARISON: Pelvis and left hip radiographs 05/16/2024 FINDINGS: There is a total left hip arthroplasty in near-anatomic alignment. No fracture. There is moderate right hip osteoarthritis. IMPRESSION: 1. Total left hip arthroplasty in near-anatomic alignment. 2. Moderate right hip osteoarthritis. Reviewed, dictated and finalized at location [facility] Quality VTE Prophylaxis VTE prophylaxis: pharmacologic ordered Hospitalist MIPS Advance Care Plan I have confirmed that the patient's Advanced Care Plan is present, code status is documented, or surrogate decision maker is listed in patient medical record.: Yes Medication Reconciliation I have utilized all available resources to obtain, update and review the patients current medications (includes all prescriptions, OTC, herbals, cannabis, and nutritional supplements).: Yes
[2024-07-14] MEDS: SENNA/DOCUSATE SODIUM TABLET 2 TAB PO (17:26)
[2024-07-14] MEDS: VANCOMYCIN 1,000 MG/NS 250 ML 1,000 MG/250 ML BAG 250 MG IVPB (18:36)
[2024-07-14] MEDS: FAMOTIDINE 20 MG TABLET PO (20:59)
[2024-07-15] MEDS: ceFAZolin 2 GM/D5W 50 ML 2 GM/50 ML BAG IVPB ×2 (00:14→08:39)
[2024-07-15] MEDS: ACETAMINOPHEN 325 MG TABLET 650 MG PO ×3 (00:22→08:41)
[2024-07-15] MEDS: ONDANSETRON INJ 4 MG/2 ML VIAL IV PUSH (01:20)
[2024-07-15 02:06] VITALS: BP 124/93; PULSE 64; RESP 16; TEMP 37.1; O2SAT 95
[2024-07-15 04:10] VITALS: BP 131/54; PULSE 90; RESP 18; TEMP 36.8; O2SAT 97
[2024-07-15] MEDS: VANCOMYCIN 1,000 MG/NS 250 ML 1,000 MG/250 ML BAG 250 MG IVPB (06:12)
[2024-07-15 07:10] LABS: Basophils Percent Auto 0.3 % (0.2-1.2); Hematocrit 29.8 % (37.0-47.0); Hemoglobin 10.1 g/dL (12.0-15.0); Immature Granulocyte Absolute 0.09 K/mm3 (0.00-0.031); Immature Granulocyte Percent A 0.6 % (0-0.5); Lymphocytes Absolute Auto 0.78 K/mm3 (0.9-3.2); Lymphocytes Percent Auto 4.9 % (18.3-44.2); Mean Corpuscular HGB Conc 33.9 g/dl (32-36); Mean Corpuscular Hemoglobin 33.4 pg (26-34); Mean Corpuscular Volume 98.7 fl (80-100); Mean Platelet Volume 9.6 fl (7.4-10.4); Monocytes Absolute Auto 1.1 K/mm3 (0.1-0.6); Neutrophils Absolute Auto 13.9 K/mm3 (1.3-6.7); Neutrophils Percent Auto 87.2 % (45.5-73.1); Platelet Count Result 233 k/mm3 (150-375); Red Blood Count 3.02 M/mm3 (4.2-5.4); Red Cell Distribution Width 12.8 % (11.5-14.5); White Blood Count 15.9 K/mm3 (4.5-10.0)
--- NOTE | 2024-07-15 07:14 | PM.PNORT ---
Subjective Subjective Date/Time Seen: 07/15/24 07:14 Interval history: Postop day 1 patient is alert. Afebrile signs are stable. Morning labs are dressing is been changed. Drain is still in. Patient was up walking yesterday with therapy in the halls.. She is taking the Tylenol regularly and this is controlling her pain. Neurovascularly she is intact.Will plan to have pt work with PT this morning and when IV abx are done she will be discharged home later this morning Objective Data Vital Signs Vital Signs: Vital Signs - 24 hr 07/14/24 10:59 07/14/24 11:10 07/14/24 11:25 Temperature 98.7 F Pulse Rate 71 71 70 Respiratory Rate 10 L 11 L 10 L Blood Pressure 104/59 L 124/70 148/81 H Pulse Oximetry 100 100 100 Oxygen Delivery Simple Face Mask Simple Face Mask Simple Face Mask Oxygen Flow Rate 10 10 10 07/14/24 11:40 07/14/24 11:55 07/14/24 12:10 Temperature Pulse Rate 76 82 78 Respiratory Rate 13 10 L 11 L Blood Pressure 146/82 H 130/58 L 145/81 H Pulse Oximetry 100 100 100 Oxygen Delivery Nasal Cannula Nasal Cannula Nasal Cannula Oxygen Flow Rate 2 2 2 07/14/24 12:36 07/14/24 13:06 07/14/24 14:21 Temperature 96.2 F L 97 F L Pulse Rate 71 66 Respiratory Rate 11 L 12 Blood Pressure 140/71 144/77 H Pulse Oximetry 98 100 Oxygen Delivery Room Air Oxygen Flow Rate 07/14/24 14:39 07/14/24 14:45 07/14/24 16:04 Temperature 97.4 F L Pulse Rate 68 Respiratory Rate 12 Blood Pressure 115/54 L Pulse Oximetry 98 Oxygen Delivery Room Air Room Air Oxygen Flow Rate 07/14/24 20:15 07/14/24 21:43 07/15/24 02:06 Temperature 98.7 F 98.7 F Pulse Rate 84 64 Respiratory Rate 18 16 Blood Pressure 129/72 124/93 H Pulse Oximetry 97 95 Oxygen Delivery Room Air Oxygen Flow Rate 07/15/24 04:10 Temperature 98.3 F Pulse Rate 90 Respiratory Rate 18 Blood Pressure 131/54 L Pulse Oximetry 97 Oxygen Delivery Oxygen Flow Rate Intake/Output Intake/Output: Intake & Output 07/12/24 07/13/24 07/14/2407/15/25 23:59 23:59 23:59 23:59 Intake Total 1768 450 Output Total 30 50 Balance 1738 400 Meds/Results Medications: Active Medications Generic Name Dose Route Start Last Admin Trade Name Freq PRN Reason Stop Dose Admin Acetaminophen 650 mg 07/14/24 13:00 07/15/24 05:42 Acetaminophen 325 Mg Tablet PO 650 mg Q4H [facility]ORRIS Administration Apixaban 2.5 mg 07/15/24 09:00 Apixaban 2.5 Mg Tablet PO 08/18/24 21:01 Q12HR [facility] Atorvastatin Calcium 40 mg 07/15/24 09:00 Atorvastatin 40 Mg Tablet PO DAILY [facility] Cefdinir 300 mg 07/15/24 14:00 Cefdinir 300 Mg Capsule PO Q12HR [facility] Celecoxib 200 mg 07/15/24 09:00 Celecoxib 200 Mg Capsule PO DAILY [facility] Famotidine 20 mg 07/14/24 21:00 07/14/24 20:59 Famotidine 20 Mg Tablet PO 20 mg Q12HR MORRIS Administration Sodium Chloride 1,000 mls @ 125 mls/hr 07/14/24 12:21 07/14/24 13:11 Normal Saline Iv IV CONT 125 mls/hr .Q8H MORRIS Administration Cefazolin Sodium 2 gm in 50 mls @ 100 mls/hr 07/14/24 16:00 07/15/24 00:44 Ancef 2 Gm/D5w 50 Ml IVPB 07/15/24 08:29 Infused Q8H M[facility]RIS Infusion Vancomycin HCl 1,000 mg in 250 mls @ 250 mls/hr 07/14/24 19:00 07/15/24 06:12 Vancomycin 1,000 Mg/Ns 250 Ml IVPB 07/15/24 07:59 250 mls/hr Q12H MORRIS Administration Morphine Sulfate 2 mg 07/14/24 12:21 Morphine Sulfate (*Crx) 2 Mg/Ml Inj IV PUSH Q2H PRN Breakthrough Pain Rated 4-6 or NPO Naloxone HCl 0.1 mg 07/14/24 12:21 Naloxone Hcl 0.4 Mg/Ml Vial IV PUSH Q2M PRN Opiate Reversal Ondansetron HCl 4 mg 07/14/24 12:21 07/15/24 01:20 Ondansetron Inj 4 Mg/2 Ml Vial IV PUSH 4 mg Q4H PRN Administration Nausea And Vomiting Polyethylene Glycol 17 gm 07/15/24 09:00 Polyethylene Glycol 3350 17 Gm Powd.Pack PO QAM [facility] Senna/Docusate Sodium 2 tab 07/14/24 17:00 07/14/24 17:26 Senna/Docusate Sodium Tablet PO 2 tab BID [facility]RIS Administration Tramadol HCl 50 mg 07/14/24 12:21 07/14/24 13:10 Tramadol Hcl (*Crx) 50 Mg Tablet PO 50 mg Q4H PRN Administration Pain Rated 1-3 Vitamin D 1,000 units 07/15/24 09:00 Cholecalciferol 1,000 Units Tablet PO DAILY [facility] Radiology Results: ITS Impressions Intraoperative X-Ray 07/14/24 10:41 IMPRESSION: 1. Expected appearance during left total total hip arthroplasty. . Hip/Pelvis X-Ray 07/14/24 11:03 IMPRESSION: 1. Total left hip arthroplasty in near-anatomic alignment. 2. Moderate right hip osteoarthritis. Labs Labs: Laboratory Results - last 24 hr 07/14/24 06:40 Blood Type A Negative Antibody Screen Negative
[2024-07-15 07:22] LABS: Anion Gap 8 mmol/L (4-12); Blood Urea Nitrogen 10 mg/dL (7-17); Calcium 8.4 mg/dL (8.4-10.2); Carbon Dioxide 23 mmol/L (22-30); Chloride 100 mmol/L (98-107); Estimated CRCL calculation 85 ml/min; Estimated Glomerular Filt Rate > 60; Glucose 141 mg/dL (65-110); Potassium 3.8 mmol/L (3.4-5.0); Sodium 131 mmol/L (137-145)
--- NOTE | 2024-07-15 07:40 | WPDANESPN ---
Anes - Prog Note Post-Op Date/Time: 07/15/24 07:40 Cardiovascular status: normal Respiratory status: normal Airway patency: baseline Mental status: baseline Post-Op hydration status: normal Vital Signs: Last Vital Signs Temp 36.8 C 07/15/24 04:10 Pulse 90 07/15/24 04:10 Resp 18 07/15/24 04:10 BP 131/54 L 07/15/24 04:10 Pulse Ox 97 07/15/24 04:10 O2 Del Method Room Air 07/14/24 21:43 O2 Flow Rate 2 07/14/24 12:10 Pain Score (VAS): 07/21 I/O: Intake & Output 07/14/24 07/14/24 07/15/24 15:59 23:59 07:59 Intake Total 250 1418 700 Output Total 30 50 Balance 250 1388 650 Laboratory Tests 07/15/24 06:31 07/15/24 06:31 WBC Pending RBC Pending Hgb Pending Hct Pending MCV Pending MCH Pending MCHC Pending RDW Pending Plt Count Pending MPV Pending Immature Gran % (Auto) Pending Neut % (Auto) Pending Lymph % (Auto) Pending Treasure % (Auto) Pending Eos % (Auto) Pending Baso % (Auto) Pending Lymph # (Auto) Pending Treasure # (Auto) Pending Eos # (Auto) Pending Baso # (Auto) Pending Abs Immat Gran (auto) Pending Absolute Neuts (auto) Pending Absolute Nucleated RBC Pending Nucleated RBC % Pending Sodium 131 L Potassium 3.8 Chloride 100 Carbon Dioxide 23 Anion Gap 8 BUN 10 Creatinine 0.59 L Estim Creat Clear Calc 85 Estimated GFR > 60 Glucose 141 H Calcium 8.4 Post-procedural complaints: none Patient Feedback: Patient satisfied with anesthetic care.
[2024-07-15] MEDS: SENNA/DOCUSATE SODIUM TABLET 2 TAB PO (08:41)
[2024-07-15] MEDS: CELECOXIB 200 MG CAPSULE PO (08:41)
[2024-07-15] MEDS: APIXABAN 2.5 MG TABLET PO (08:41)
[2024-07-15] MEDS: CHOLECALCIFEROL 1,000 UNITS TABLET 1000 UNITS PO (08:41)
[2024-07-15] MEDS: ATORVASTATIN 40 MG TABLET PO (08:41)
[2024-07-15] MEDS: FAMOTIDINE 20 MG TABLET PO (08:41)
[2024-07-15] MEDS: polyethylene glycoL 3350 17 GM POWD.PACK PO (08:42)
--- NOTE | 2024-07-15 15:19 | WPDPN ---
Subjective Date/time seen: 07/15/24 15:19 Interval history: patient was discharged by the orthopedic surgeon before I saw the patient. Objective Data Vital Signs Vital Signs: Vital Signs - 24 hr 07/14/24 16:04 07/14/24 20:15 07/14/24 21:43 Temperature 36.3 C L 37.1 C Pulse Rate 68 84 Respiratory Rate 12 18 Blood Pressure 115/54 L 129/72 Pulse Oximetry 98 97 Oxygen Delivery Room Air 07/15/24 02:06 07/15/24 04:10 Temperature 37.1 C 36.8 C Pulse Rate 64 90 Respiratory Rate 16 18 Blood Pressure 124/93 H 131/54 L Pulse Oximetry 95 97 Oxygen Delivery Intake/Output Intake/Output: Intake & Output 07/12/24 07/13/24 07/14/24 07/15/24 23:59 23:59 23:59 23:59 Intake Total 1768 1110 Output Total 30 50 Balance 1738 1060 Meds/Results Radiology Results: ITS Impressions Intraoperative X-Ray 07/14/24 10:41 IMPRESSION: 1. Expected appearance during left total total hip arthroplasty. . Hip/Pelvis X-Ray 07/14/24 11:03 IMPRESSION: 1. Total left hip arthroplasty in near-anatomic alignment. 2. Moderate right hip osteoarthritis. Labs Labs: Laboratory Results - last 24 hr 07/15/24 06:31 WBC 15.9 H RBC 3.02 L Hgb 10.1 L D Hct 29.8 L MCV 98.7 MCH 33.4 MCHC 33.9 RDW 12.8 Plt Count 233 MPV 9.6 Immature Gran % (Auto) 0.6 H Neut % (Auto) 87.2 H Lymph % (Auto) 4.[address] [place] % (Auto) 7.0 Eos % (Auto) 0.0 Baso % (Auto) 0.3 Lymph # (Auto) 0.[address] [place] # (Auto) 1.1 H Eos # (Auto) 0.0 Baso # (Auto) 0.0 Abs Immat Gran (auto) 0.09 H Absolute Neuts (auto) 13.9 H Absolute Nucleated RBC 0.000 Nucleated RBC % 0.0 Sodium 131 L Potassium 3.8 Chloride 100 Carbon Dioxide 23 Anion Gap 8 BUN 10 Creatinine 0.59 L Estim Creat Clear Calc 85 Estimated GFR > 60 Glucose 141 H Calcium 8.4
== END 2024-07-15 11:35 | disposition home or self-care (01) ==
LOC: ANHSURGERY 05:44 → ANH3MEDSUR 12:28
PROVIDERS: Physician Assistant Surgical; PCP Internal Medicine; Visit Provider Orthopaedic Surgery
PROC: (CPT 27130; principal; 2024-07-14 07:30)
DX: M16.12 Unilateral primary osteoarthritis, left hip (principal); M17.11 Unilateral primary osteoarthritis, right knee; E78.00 Pure hypercholesterolemia, unspecified; E66.9 Obesity, unspecified; Z68.33 Body mass index [BMI] 33.0-33.9, adult
CPT/HCPCS: 27130; 20610; 36415; 73501; 80048; 80307; 82040; 83036; 85025; 86850; 86900; 86901; 87081; 93005; 97110; 97116; 97161; 97165; 97530; 97535; 99199; A9270; C1776; J0171; J0690; J1010; J1100; J1171; J1885; J2003; J2250; J2270; J2371; J2405; J2704; J2795; J3010; J3370; J7030; J7120

== ENCOUNTER 2024-09-29 05:55 | Day surgery (SDC) | payer MEDICARE, SELFPAY ==
--- NOTE | 2024-09-10 09:40 | PC.NURSE ---
INSTRUCTED PATIENT TO VERIFY ANY ANTIBIOTICS REQUIRED BY ORTHO DOCTOR BREEZY R/T RECENT LEFT HIP REPLACEMENT
--- OUTSIDE RECORDS SUMMARY | 2024-09-29 06:08 | XMS_ITS | Data Portability ---
Author Organization [facility] Address [address] [place] [address] Care Team Providers Care General Doc Name Role Phone TOLU CHINCHILLA Primary Care [...] MAMMO, diagnostic , digital, bilateral 2021 022 [facility], [address] [place], [address], 13:31:37 US, breast, unilateral , complete - left breast lump/tende rness 2021 022 [facility], [address] [place], [address], 13:32:56 Medication Orders None recorded. Patient TargetsNo targets recorded. Patient InstructionsNo instructions recorded. Reason for Referral None Reported. Results Created Date Observation Date Name Description Value Unit Range Abnormal Flag Note LastModifiedBy Organization Detail LastModifiedTime 10/20/19 22 10/19/2021 MAMMO , diagn ostic , digit al, bilat eral No observ ation record ed. [facility] [address] [place], [address], 10/26/2021 11:34:22 10/20/19 22 10/19/2021 US, breas t, unila teral , compl ete No observ ation record ed. [facility] [address] [place], [address], 10/26/2021 11:34:23 10/27/19 22 10/19/2021 US, breas t, unila teral , compl ete No observ ation record ed. [facility] [address] [place], [address], 10/26/2021 14:22:48 Result Notes None recorded. Procedures Surgical History Date Name Laterality Status Provider Name and Address Organization Details Recorded Time 05/14/2018 Date of Last Pap Smear completed Ricarda Jackson [facility] 09/19/2021 10:40:47 Imaging Results Imaging Date Name Status LastModified by Organiz ation Details LastModified Time 10/19/2021 MAMMO, diagnostic, digital, bilateral completed [facility] [address] [place], [address], 10/26/2021 11:34:22 10/19/2021 US, breast, unilateral, complete completed [facility] [address] [place], [address], 10/26/2021 11:34:23 10/19/2021 US, breast, unilateral, complete completed [facility] [address] [place], [address], 10/26/2021 14:22:48 Procedure Notes None recorded. Medical Equipment None Reported. Allergies Allergen ID Allergen Name Allergen Category Reaction Reaction Severity Criticality Documentation Date Start Date Code Code System Note Provider Name and Address Organization Details Recorded Time 71960 morphine medicatio n Not available Not available Not available 04/30/2020 7052 RxNorm Comme nt: [facility]at [facility]; Not Available [facility] 0 14:20:54 Medications Name Sig Start Date Stop Date Status Note LastModified by Organization Details LastModified Time atorvasta tin 10 mg tablet take 1 tablet by oral route every day active Prescrib ed Elsewher e: Yes Loca tion: Magdiel mai [facility] odify By: [email or web address] z Encoun ter DateTime : 08/24/19 17 08:30:00 AM Not Available Not Available Not Available sulfameth oxazole 800 mg-trimet hoprim 160 mg tablet take 1 tablet by oral route every 12 hours for 10 days 09/17 completed Prescrib ed Elsewher e: No Locat ion: Magdiel mai [facility] odify By: crissy calleuntzhen DateTime : 09/09/19 18 01:40:12 PM Not Available Not Available Not Available Vitamin D2 1,250 mcg (50,000 unit) capsule take 1 capsule (48332HS ITS) by oral route every week 07/10 completed Prescrib ed Elsewher e: No Locat ion: Magdiel mai [facility] odify By: lars Francisco r DateTime : 07/11/19 14 03:46:12 PM Not Available Not Available Not Available Calcio Coleen 500 mg tablet 07/10 completed Prescrib ed Elsewher e: Yes Loca tion: Magdiel mai [facility] odify By: lars Mejiate r DateTime : 06/13/19 12 10:00:00 AM Not Available Not Available Not Available Vitamin D3 10 mcg (400 unit) capsule active Prescrib ed Elsewher e: Yes [facility] By: damaris tz Encou nter DateTime : 06/10/19 12 01:35:55 PM Not Available Not Available Not Available Vitals Date Recorded Body height Body mass index (BMI) Body weight Systolic blood pressure Diastolic blood pressure Provider Name and Address Organization Details Last Updated DateTime 09/19/2021 167.64 cm 37.3 kg/m2 339532.5 6 g 134 mm[Hg] 84 mm[Hg] Ricarda Jackson [facility] 10:48:24 Social History Question Answer Notes LastModified by Organizat ion Details LastModified Time Tobacco Smoking Status Never Smoker Ricarda Jackson [facility] 09/19/2021 10:39:44 Are You Blind Or Do You Have Difficulty Seeing? No Information not available 09/19/2021 Are You Deaf Or Do You Have Serious Difficulty Hearing? No Information not available 09/19/2021 What Type Of Diet Are You Following? REGULAR Information not available 09/19/2021 Do You Have Difficulty Walking Or Climbing Stairs? No Information not available 09/19/2021 Sex: Unknown Functional Status Question Answer Note LastModified by Organizat ion Details LastModified Time What is your level of alcohol consumption? None Information not available 09/19/2021 Are you able [...] (Food, seasonal, environmental ) N Other N Blood Transfusion N Breast Cancer N Drug/Latex Allergies/Reactions N Lung Disease N Dermatologic Disorders N Defects or Inherited Disease N Breast Problem N Gestational Diabetes N Hematologic disorders N Anesthesia Complications N History of STI N Deep Vein Thrombosis N Polycystic ovary syndrome N Anxiety Disorder N Autoimmune disease N Arthritis N Polyps N Infertility N History of abnormal pap N Acid Reflux (GERD) N Cancer N Varicosities N Stroke N Neurologic/Epilepsy N Endometriosis N High Cholesterol N Headaches N Fibromyalgia N Kidney Disease N Heart Problems N Thyroid Problems N Kidney or Bladder Problems N GI Problems N Eating Disorder [...] SNOMED-CT Code Diagnosis ICD10 Code Diagnosis Note 406[address] NICOLÁS Clark [place] [address] [address] 09/19/2021 10:33:48 09/19/2021 11:18:08 Mass of left breast [id number] N63.20 Gynecologi c examination 12076215 Z01.419 Take Calcium with Vitamin D 12-1500mg daily. Do monthly self breast exams. It is advised to get annual flu shot in the fall and she could obtain at [facility] or [facility] care clinic. 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 09/19/2021 11:16:14 OBGyn Episode Ob Episode Information Episode Created Date Number of Fetuses Patient Bloodtype Patient rh Status Prepregnancy Weight lbs Domestic Partner Domestic Partner Phone Father Name Grain Oilseed Or Pasture Grower Status 09/20/19 22 1 CLOSED Fetus Data First Name Last Name Admitted to NICU Weight (g) Sex Living Outcome Pediatric Complications Fetus ID Race Codes Race Delivery Type 5046.21 1 F Full Term [id number] Vaginal Delivery Bill Calculation Initial Bill Date [...]
--- OUTSIDE RECORDS SUMMARY | 2024-09-29 06:08 | XMS_ITS | CONTINUITY OF CARE DOCUMENT ---
Author Name holly barrera Address Unknown Organization [facility] Address [address] [place] [address] Phone [phone] Care Team Providers Care Clinical Assessment Manager Name Role Phone Jose Antonio Bhatt MD Unavailable Jose Antonio Bhatt MD Unavailable INSURANCE PROVIDERS Payer name Policy type / Coverage type Louis red republican ID [employer] MEDICARE [place] PPO Medicare [id number]
[2024-09-29 06:21] VITALS: BP 149/87; PULSE 83; RESP 16; TEMP 36.9; O2SAT 100
--- NOTE | 2024-09-29 06:51 | P.PNAN_ITS ---
Anes - Initial Pre Proc Eval Procedure: Operation Date: 09/29/24 07:30 Proposed Procedures p Diagnostic Colonoscopy - Jah Rueda MD Date/Time: 09/29/24 06:51 Surgeon: Jah Rueda MD Pre Op Diagnosis: HX of Colon Polyps Patient Data Age: 73 Gender: F Height: Weight: 91.1 kg Last Vital Signs Temp 36.9 C 09/29/24 06:21 Pulse 83 09/29/24 06:21 Resp 16 09/29/24 06:21 BP 149/87 H 09/29/24 06:21 Pulse Ox 100 09/29/24 06:21 O2 Del Method Room Air 09/29/24 06:21 Allergies Allergy/AdvReac Type Severity Reaction Status Date / Time opiates Allergy Severe increases Uncoded 09/29/24 06:20 pain, nausea & vomiting Home Medications Medication Instructions Recorded Confirmed Type atorvastatin 40 mg tablet 40 mg PO DAILY 10/11/23 09/29/24 History cholecalciferol (vitamin D3) 25 1,000 unit PO DAILY 06/27/24 09/29/24 History mcg (1,000 unit) capsule sennosides 8.6 mg-docusate sodium 2 tab-cap PO DAILY 09/10/24 09/29/24 History 50 mg tablet (Senexon-S) Patient hx anesthesia problems: none Family hx anesthesia problems: none Results Review: All pre-operative results and documents have been reviewed as part of the pre- operative evaluation. [facility] Past Medical History Medical History (Updated 09/29/24 @ 06:52 by Lalito Pérez DO) GERD (gastroesophageal reflux disease) Obesity High cholesterol Surgical History Surgical History S/P total left hip arthroplasty History of foot surgery 06/05 left foot, 04/05 right foot Family History Family History Other Acute myocardial infarction Social History Social History Smoking status: Never smoker Second hand tobacco smoke exposure: Yes Alcohol intake: never Substance use: never Substance use type: does not use Current Housing: Decline to Answer Concerned About Future Housing: Decline to Answer Difficulty Paying Gas/Electric Bills: Decline to Answer Difficulty Paying for Meds: Decline to Answer Currently Unemployed: Decline to Answer Education: Decline to Answer Difficulty w/ Childcare or Family Care: Decline to Answer Living arrangements: with family Additional living arrangements comments: SPOUSE Occupation/Education: retired 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 Informed Consent: The patient's anesthetic plan and its attendant risks and benefits were discussed with the patient/family/POA. Questions were solicited and answers provided to the satisfaction of the patient/family/POA.
[2024-09-29] MEDS: LACTATED RINGERS 1,000 ML 150 ML IV CONT (07:00)
--- NOTE | 2024-09-29 07:31 | P.HP_ITS ---
H&P: HPI History of Present Illness Date/Time: 09/29/24 07:31 Chief Complaint: Screening colonoscopy Narrative: This is the patient's 2nd colonoscopy. There are no GI symptoms and there is no family history of colorectal cancer. Review of Systems Review of Systems: All systems reviewed & are unremarkable except as noted in HPI and below PMFSH Past Medical History Medical History (Updated 09/29/24 @ 07:32 by Jah Rueda MD) GERD (gastroesophageal reflux disease) Obesity High cholesterol Surgical History Surgical History S/P total left hip arthroplasty History of foot surgery 06/05 left foot, 04/05 right foot Family History Family History Other Acute myocardial infarction Social History Social History Smoking status: Never smoker Second hand tobacco smoke exposure: Yes Alcohol intake: never Substance use: never Substance use type: does not use Current Housing: Decline to Answer Concerned About Future Housing: Decline to Answer Difficulty Paying Gas/Electric Bills: Decline to Answer Difficulty Paying for Meds: Decline to Answer Currently Unemployed: Decline to Answer Education: Decline to Answer Difficulty w/ Childcare or Family Care: Decline to Answer Living arrangements: with family Additional living arrangements comments: SPOUSE Occupation/Education: retired 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 Gender identity (if verbalized by the patient): Female Spiritual care concerns: No Meds Home Medications and Allergies Home Medications Medication Instructions Recorded Confirmed Type atorvastatin 40 mg tablet 40 mg PO DAILY 10/11/23 09/29/24 History cholecalciferol (vitamin D3) 25 1,000 unit PO DAILY 06/27/24 09/29/24 History mcg (1,000 unit) capsule sennosides 8.6 mg-docusate sodium 2 tab-cap PO DAILY 09/10/24 09/29/24 History 50 mg tablet (Senexon-S) Allergies Allergy/AdvReac Type Severity Reaction Status Date / Time opiates Allergy Severe increases Uncoded 09/29/24 06:20 pain, nausea & vomiting Vital Signs Vital Signs - 24 hr 09/29/24 06:21 Temperature 98.5 F Pulse Rate 83 Respiratory Rate 16 Blood Pressure 149/87 H Pulse Oximetry 100 Oxygen Delivery Room Air Exam Const: General: cooperative and healthy appearing Resp: Effort & Inspection: normal respiratory effort and able to speak in complete sentences Auscultation: clear to auscultation bilaterally Cardio: Rate: regular rate Rhythm: regular rhythm GI: Inspection: normal to inspection GI Palp: No No hepatosplenomegaly present Auscultation: normal bowel sounds Rectal Exam: deferred Skin: General skin exam: normal color Psych: Appearance: grossly normal Mental Status: mental status grossly normal Assessment and Plan Assessment and plan (1) Encounter for screening colonoscopy: Code(s): Z12.11 - Encounter for screening for malignant neoplasm of colon Status: Acute Assessment and Plan: The patient is deemed a good candidate for the procedure. Consent signed. Will proceed.
[2024-09-29 08:02] VITALS: BP 115/61; PULSE 95; RESP 16; O2SAT 100
--- NOTE | 2024-09-29 08:08 | WPDANESPN ---
Anes - Prog Note Post-Op Date/Time: 09/29/24 08:08 Cardiovascular status: normal Respiratory status: normal Airway patency: baseline Mental status: baseline Post-Op hydration status: normal Vital Signs: Last Vital Signs Temp 36.9 C 09/29/24 06:21 Pulse 83 09/29/24 06:21 Resp 16 09/29/24 06:21 BP 149/87 H 09/29/24 06:21 Pulse Ox 100 09/29/24 06:21 O2 Del Method Room Air 09/29/24 06:21 Pain Score (VAS): 0 I/O: Intake & Output 09/28/24 09/29/24 09/29/24 23:59 07:59 15:59 Intake Total 100 Balance 100 Post-procedural complaints: none Patient Feedback: Patient satisfied with anesthetic care. Other Findings: Patient vital signs back to baseline. Patient denies nausea and vomiting. Patient's pain under control. Patient OK for discharge.
[2024-09-29 08:12] VITALS: BP 117/85; PULSE 76; RESP 18; O2SAT 97
[2024-09-29 08:22] VITALS: BP 126/80; PULSE 62; RESP 18; O2SAT 100
== END 2024-09-29 08:33 | disposition home or self-care (01) ==
PROVIDERS: PCP Internal Medicine; Visit Provider Internal Medicine Gastroenterology
PROC: 0DJD8ZZ Inspection of Lower Intestinal Tract, Via Natural or Artificial Opening Endoscopic (ICD-10-PCS; CPT 45378; principal; 2024-09-29 07:30)
DX: Z12.11 Encounter for screening for malignant neoplasm of colon (principal); K63.89 Other specified diseases of intestine
CPT/HCPCS: G0121

== ENCOUNTER 2025-03-13 12:21 | Outpatient (CLI) | payer MEDICARE, SELFPAY ==
--- OUTSIDE RECORDS SUMMARY | 2004-01-05 09:15 | XMS_ITS | Continuity of Care Document ---
Author Organization 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 [address] [place], [address], . tel: [phone] Family History Family Member Type Diagnosis Age At Onset No Information Payers Payer name Insurance type Covered green party ID Authoriza tion(s) No Information Social History Type Description Quantity Date Captured Comments Sex Female Smoking Status No Information Chief Complaint And Reason For Visit No Information Reason For Referral Reason For Referral No Information History Of Present Illness Encounter Date Complaint History Of Prese nt Illness No Information Functional Status Date Functional Assessmen t No Information Instructions Date Instruction Additional Infor mation No Information Assessments Type Assessment Date No Information Patient Care Teams Name Effective Dates (start - stop) Status Members No Information
--- OUTSIDE RECORDS SUMMARY | 2025-03-13 12:24 | XMS_ITS | Data Portability ---
Author Organization [facility] Address [address] [place] [address] Care Team Providers Care Stock Clipper Name Role Phone TOLU CHINCHILLA Primary Care [...] MAMMO, diagnostic , digital, bilateral 2021 022 [facility], [address] [place], [address], 13:31:37 US, breast, unilateral , complete - left breast lump/tende rness 2021 022 [facility], [address] [place], [address], 13:32:56 Medication Orders None recorded. Patient TargetsNo targets recorded. Patient InstructionsNo instructions recorded. Reason for Referral None Reported. Results Created Date Observation Date Name Description Value Unit Range Abnormal Flag Note LastModifiedBy Organization Detail LastModifiedTime 10/20/1910/19/2021 MAMMO , diagn ostic , digit al, bilat eral No observ ation record ed. [facility] [address] [facility] [place], [address], 10/26/2021 11:34:22 10/20/19 22 10/19/2021 US, breas t, unila teral , compl ete No observ ation record ed. [facility] [address] [place], [address], 10/26/2021 11:34:23 10/27/19 22 10/19/2021 US, breas t, unila teral , compl ete No observ ation record ed. [facility] [address] [facility] [place], [address], 10/26/2021 14:22:48 Result Notes None recorded. Procedures Surgical History Date Name Laterality Status Provider Name and Address Organization Details Recorded Time 05/14/2018 Date of Last Pap Smear completed Ricarda [facility] 09/19/2021 10:40:47 Imaging Results None recorded. Procedure Notes None recorded. Medical Equipment None Reported. Allergies Allergen ID Allergen Name Allergen Category Reaction Reaction Severity Criticality Documentation Date Start Date Code Code System Note Provider Name and Address Organization Details Recorded Time 58619 morphine medicatio n Not available Not available Not available 04/30/2020 7052 RxNorm Comme nt: [facility]at [facility]; Not Available [facility] 0 14:20:54 Medications Name Sig Start Date Stop Date Status Note LastModified by Organization Details LastModified Time atorvasta tin 10 mg tablet take 1 tablet by oral route every day active Prescrib ed Elsewher e: Yes Loca tion: [facility] odify By: cmschult z Encoun leoncio DateTime : 08/24/19 17 08:30:00 AM Not Available Not Available Not Available sulfameth oxazole 800 mg-trimet hoprim 160 mg tablet take 1 tablet by oral route every 12 hours for 10 days 09/17 completed Prescrib ed Elsewher e: No Locat ion: [facility] odify By: tyoung E ncounter DateTime : 09/09/19 18 01:40:12 PM Not Available Not Available Not Available Vitamin D2 1,250 mcg (50,000 unit) capsule take 1 capsule (67585FG ITS) by oral route every week 07/10 completed Prescrib ed Elsewher e: No Locat ion: Magdiel mai [facility] odify By: lars Francisco r DateTime : 07/11/19 14 03:46:12 PM Not Available Not Available Not Available Calcio Coleen 500 mg tablet 07/10 completed Prescrib ed Elsewher e: Yes Loca tion: [facility] odify By: lars Francisco r DateTime : 06/13/19 12 10:00:00 AM Not Available Not Available Not Available Vitamin D3 10 mcg (400 unit) capsule active Prescrib ed Elsewher e: Yes Loca tion: [facility] odify By: joselynhar tz Encou nter DateTime : 06/10/19 12 01:35:55 PM Not Available Not Available Not Available Vitals Date Recorded Body height Body mass index (BMI) Body weight Systolic And Diastolic Provider Name and Address Organization Details Last Updated DateTime 09/19/2021 167.64 cm 37.3 kg/m2 045597.56 g 134/84 mm[Hg] Ricarda Jackson [facility] 09/19/2021 10:48:24 Social History Question Answer Notes LastModified by Organizat ion Details LastModified Time Tobacco Smoking Status Never Smoker Ricarda Jackson null, [facility] 09/19/2021 10:39:44 Are You Blind Or [...] not available 09/19/2021 Are you able to walk independently without assistance or assistive devices? YESWOREST Information not available 09/19/2021 Are you able to care for yourself independently? Yes Information not available 09/19/2021 Do you have difficulty dressing, bathing, grooming, or toileting? No Information not available 09/19/2021 What is [...] Diagnosis SNOMED-CT Code Diagnosis ICD10 Code Diagnosis IMO Codes Diagnosis Note 77771 NICOLÁS Clark [place] [address] [address] 09/19/2021 10:33:48 09/19/2021 11:18:08 Mass of left breast [id number] N63.20 Gynecologi c examination 82708127 Z01.419 Take Calcium with Vitamin D 12-1500mg daily. Do monthly self breast exams. It is advised to get annual flu shot in the fall and she could obtain at [facility] or [facility] clinic. 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 For vaginal bleeding, patient reportshistory of menopause having occurredandno history of post menopausal bleeding. For urinary symptoms, patient reportsno hematuria,no incontinence,no nocturia, andno urinary frequency. For vulva, patient reportsno genital lesionandno vulvar atrophy. For vagina, patient reportsnormal vaginal dischargeandno vaginal atrophy.Breast symptomsFor breast, patient reportsno breast lump,no nipple discharge, andno breast pain.Psychological symptomsFor sexual complaints, patient reportsno sexual complaints. For psychological symptoms, patient reportsno depressionandno anxiety.Preventative measuresFor preventive measures, patient reportsencourage regular mammograms starting age 40,encourage self breast examination,encourage regular exercise,encourage no tobacco use,mammogram performed within the past year, andhistory of recent colonoscopy. NICOLÁS Clark [address], [place], [address], [facility] 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
[2025-03-13 12:57] LABS: Hematocrit 37.8 % (37.0-47.0); Hemoglobin 12.8 g/dL (12.0-15.0); Immature Granulocyte Percent A 0.4 % (0-0.5); Lymphocytes Absolute Auto 2.10 K/mm3 (0.9-3.2); Mean Corpuscular HGB Conc 33.9 g/dl (32-36); Mean Corpuscular Hemoglobin 32.5 pg (26-34); Mean Corpuscular Volume 95.9 fl (80-100); Nucleated Red Blood Cells Absolute Auto 0.000 K/mm3 (0.0-0.012); Nucleated Red Blood Cells Perc 0.0 % (0.0-0.2); Platelet Count Result 241 k/mm3 (150-375); Red Blood Count 3.94 M/mm3 (4.2-5.4); White Blood Count 8.2 K/mm3 (4.5-10.0)
[2025-03-13 13:21] LABS: Alanine Aminotransferase 26 U/L (6-35); Albumin Level 4.3 g/dL (3.5-5.1); Alkaline Phosphatase 86 U/L (38-126); Anion Gap 7 mmol/L (4-12); Aspartate Amino Transferase 45 U/L (14-36); Bilirubin,Total 0.5 mg/dL (0.2-1.3); Blood Urea Nitrogen 17 mg/dL (7-17); Calcium 8.8 mg/dL (8.4-10.2); Carbon Dioxide 26 mmol/L (22-30); Chloride 95 mmol/L (98-107); Estimated Glomerular Filt Rate > 60; Glucose 104 mg/dL (65-110); Potassium 3.6 mmol/L (3.4-5.0); Sodium 128 mmol/L (137-145); Total Protein 6.8 g/dL (6.3-8.2)
== END 2025-03-13 12:22 | disposition home or self-care (01) ==
PROVIDERS: PCP Internal Medicine; Visit Provider Physician Assistant Surgical
DX: Z51.81 Encounter for therapeutic drug level monitoring (principal); Z79.1 Long term (current) use of non-steroidal anti-inflammatories (NSAID)
CPT/HCPCS: 36415; 80053; 85025

== ENCOUNTER 2025-04-21 07:00 | Outpatient (CLI) | payer MEDICARE, SELFPAY ==
--- OUTSIDE RECORDS SUMMARY | 2025-04-21 07:06 | XMS_ITS | Data Portability ---
Author Organization 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 Patient TargetsNo targets recorded. Patient InstructionsNo instructions recorded. Reason for Referral None Reported. Results Created Date Observation Date Name Description Value Unit Range Abnormal Flag Note LastModifiedBy Organization Detail LastModifiedTime 10/20/1910/19/2021 MAMMO , diagn ostic , digit al, bilat eral No observ ation record ed. [facility] [address] [place], [address], 10/26/2021 11:34:22 10/20/19 22 10/19/2021 US, breas t, unila teral , compl ete No observ ation record ed. [facility] [address] [place], [address], 10/26/2021 11:34:23 10/27/19 22 10/19/2021 US, breas t, unila teral , compl ete No observ ation record ed. [facility] [address] [facility] [place], [address], 10/26/2021 14:22:48 Result Notes None recorded. Procedures Surgical History Date Name Laterality Status Provider Name and Address Organization Details Recorded Time 05/14/2018 Date of Last Pap Smear completed Ricarda [facility] 09/19/2021 10:40:47 Imaging Results None recorded. Procedure Notes None recorded. Medical Equipment None Reported. Allergies Allergen ID Allergen Name Allergen Category Reaction Reaction Severity Criticality Documentation Date Start Date Code Code System Note Provider Name and Address Organization Details Recorded Time 72255 morphine medicatio n Not available Not available Not available 04/30/2020 7052 RxNorm Comme nt: [facility]at [facility]: [facility]; Not Available [facility] 0 14:20:54 Medications Name Sig Start Date Stop Date Status Note LastModified by Organization Details LastModified Time atorvasta tin 10 mg tablet take 1 tablet by oral route every day active Prescrib ed Elsewher e: Yes Loca tion: [facility] odify By: cmschult z Encoun leoncio DateTime : 08/24/19 17 08:30:00 AM Not Available Not Available Not Available sulfameth oxazole 800 mg-trimet hoprim 160 mg tablet take 1 tablet by oral route every 12 hours for 10 days 09/17 completed Prescrib ed Elsewher e: No Locat ion: [facility] odify By: tyoung E ncounter DateTime : 09/09/19 18 01:40:12 PM Not Available Not Available Not Available Vitamin D2 1,250 mcg (50,000 unit) capsule take 1 capsule (93287CS ITS) by oral route every week 07/10 completed Prescrib ed Elsewher e: No Locat ion: Magdiel mai [facility] odify By: lars Francisco r DateTime : 07/11/19 14 03:46:12 PM Not Available Not Available Not Available Calcio Coleen 500 mg tablet 07/10 completed Prescrib ed Elsewher e: Yes Loca tion: Magdiel mai [facility] odify By: lars Francisco r DateTime : 06/13/19 12 10:00:00 AM Not Available Not Available Not Available Vitamin D3 10 mcg (400 unit) capsule active Prescrib ed Elsewher e: Yes Loca tion: Magd[facility] odify By: joselynhar tz Encou nter DateTime : 06/10/19 12 01:35:55 PM Not Available Not Available Not Available Vitals Date Recorded Body height Body mass index (BMI) Body weight Systolic And Diastolic Provider Name and Address Organization Details Last Updated DateTime 09/19/2021 167.64 cm 37.3 kg/m2 292321.56 g 134/84 mm[Hg] Ricarda Jackson [facility] 09/19/2021 10:48:24 Social History Question Answer Notes LastModified by Organizat ion Details LastModified Time Tobacco Smoking Status Never Smoker Ricarda Jackson null, [facility] 09/19/2021 10:39:44 Are You Blind Or [...] ICD10 Code Diagnosis IMO Codes Diagnosis Note 69134 NICOLÁS Clark [place] [address] [address] 09/19/2021 10:33:48 09/19/2021 11:18:08 Mass of left breast [id number] N63.20 Gynecologi c examination 63501848 Z01.419 Take Calcium with Vitamin D 12-1500mg daily. Do monthly self breast exams. It is advised to get annual flu shot in the fall and she could obtain at [facility] or [facility] clinic. 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 NICOLÁS Clark [address], [place], [address], [facility] 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
[2025-04-21 07:23] LABS: Hematocrit 40.5 % (37.0-47.0); Hemoglobin 13.9 g/dL (12.0-15.0); Immature Granulocyte Percent A 0.4 % (0-0.5); Lymphocytes Absolute Auto 1.46 K/mm3 (0.9-3.2); Mean Corpuscular HGB Conc 34.3 g/dl (32-36); Mean Corpuscular Hemoglobin 33.2 pg (26-34); Mean Corpuscular Volume 96.7 fl (80-100); Nucleated Red Blood Cells Absolute Auto 0.000 K/mm3 (0.0-0.012); Nucleated Red Blood Cells Perc 0.0 % (0.0-0.2); Platelet Count Result 231 k/mm3 (150-375); Red Blood Count 4.19 M/mm3 (4.2-5.4); White Blood Count 7.7 K/mm3 (4.5-10.0)
[2025-04-21 07:46] LABS: Alanine Aminotransferase 17 U/L (6-35); Albumin Level 4.1 g/dL (3.5-5.1); Alkaline Phosphatase 71 U/L (38-126); Anion Gap 1 mmol/L (4-12); Aspartate Amino Transferase 28 U/L (14-36); Bilirubin,Total 0.7 mg/dL (0.2-1.3); Blood Urea Nitrogen 13 mg/dL (7-17); Calcium 9.2 mg/dL (8.4-10.2); Carbon Dioxide 27 mmol/L (22-30); Chloride 103 mmol/L (98-107); Cholesterol 148 mg/dL (0-200); Estimated Glomerular Filt Rate > 60; Glucose 102 mg/dL (65-110); HDL Direct 69 mg/dL; Potassium 4.3 mmol/L (3.4-5.0); Sodium 131 mmol/L (137-145); Total Protein 6.8 g/dL (6.3-8.2); Triglycerides 60 mg/dL (<150)
[2025-04-21 08:22] LABS: Thyroid Stimulating Hormone 2.150 uIU/mL (0.465-4.680)
[2025-04-21 08:59] LABS: Free T4 Free Thyroxine 1.18 ng/dL (0.78-2.19)
== END 2025-04-21 07:01 | disposition home or self-care (01) ==
PROVIDERS: PCP Internal Medicine; Visit Provider Internal Medicine
DX: E78.00 Pure hypercholesterolemia, unspecified (principal); E55.9 Vitamin D deficiency, unspecified
CPT/HCPCS: 36415; 80053; 80061; 82306; 84439; 84443; 85025